=== PATIENT | male | born 1950 | race American Indian/Alaskan Native ===

== ENCOUNTER 2016-11-19 12:22 | Inpatient (IN) | payer MEDICARE ==
[2016-11-19 13:15] LABS: Basophils % (Auto) 0.8 % (0.0-1.8); Eosinophils % (Auto) 3.7 % (0.0-4.3); Hematocrit 26.1 % (35.5-45.6); Hemoglobin 8.7 gm/dl (11.8-15.2); Mean Corpuscular HGB Conc 33 % (32-34); Mean Corpuscular Hemoglobin 29 pg (28-32); Mean Corpuscular Volume 89 fl (84-94); Platelet Count 232 K/mm3 (140-440); Red Blood Count 2.95 M/mm3 (3.65-5.03); Red Cell Distribution Width 14.1 % (13.2-15.2); White Blood Count 8.5 K/mm3 (4.5-11.0)
[2016-11-19 13:37] LABS: Albumin 3.7 g/dL (3.9-5); Albumin/Globulin Ratio 1.1 %; BUN/Creatinine Ratio 10.4; Bilirubin,Total 0.2 mg/dL (0.1-1.2); Calcium 9.1 mg/dL (8.4-10.2); Chloride 101.6 mmol/L (98-107); Potassium 5.1 mmol/L (3.6-5.0)
[2016-11-19 13:59] LABS: Bacteria,Urine 1+ /HPF (Negative); Bilirubin,Urine NEG (Negative); Blood,Urine NEG (Negative); Ketones,Urine NEG (Negative); Leukocyte Esterase,Urine LG (Negative); Nitrite,Urine NEG (Negative); Protein,Urine <15 mg/dL mg/dL (Negative); Urobilinogen,Urine < 2.0 mg/dL (<2.0)
[2016-11-19 14:02] LABS: WBC,Urine > 182.0 /HPF (0.0-6.0)
--- NOTE | 2016-11-19 14:50 | Emergency Department Report ---
ED General Adult HPI - General Chief complaint: Weakness Stated complaint: ABNORMAL LABS Time Seen by Provider: 11/19/16 14:34 Source: patient Mode of arrival: Ambulatory Limitations: No Limitations - History of Present Illness Initial comments: The patient did complain of some generalized weakness. However, he was mainly sent here from Dr. Peterson's office due to a abnormal laboratory report. The patient states that he was found to have a creatinine of 6 on a blood test that was drawn a week and a half ago. He doesn't know why it took so long to get the laboratory report back. However, when he saw Dr. Peterson in the office today he was sent to the emergency department for evaluation. Patient was recently admitted to this facility for acute renal failure and obstructive uropathy. He had a Winn placed. He followed up with Dr. Callaway who removed the Winn approximately one week after discharge. He is not discharged on antibiotics. He states that while his kidneys were obstructed, he was urinating fine. He states "Dr. Soliz couldn't understand why that was the case". Patient denies dysuria, nausea vomiting flank pain or difficulty urinating now. He states he feels like he can't empty his bladder. He was placed on Flomax for prostatic hypertrophy. Not know what his PSA was. -: unknown Associated Symptoms: denies other symptoms - Related Data Previous Rx's Medication Instructions Recorded Last Taken Type Labetalol [Normodyne TAB] 400 mg PO BID #60 tablet 11/03/16 Unknown Rx Sodium Bicarbonate 650 mg PO TID #90 tablet 11/03/16 Unknown Rx Tamsulosin [Flomax] 0.4 mg PO QDAY #30 capsule 11/03/16 Unknown Rx amLODIPine [Norvasc] 10 mg PO QDAY #30 tablet 11/03/16 Unknown Rx Allergies Allergy/AdvReac Type Severity Reaction Status Date / Time aspirin AdvReac Bleeding Verified 10/31/16 20:34 ED Review of Systems ROS: Stated complaint: ABNORMAL LABS Other details as noted in HPI Constitutional: weakness. denies: chills, fever Eyes: denies: eye pain, eye discharge, vision change ENT: denies: ear pain, throat pain Respiratory: denies: cough, shortness of breath, wheezing Cardiovascular: denies: chest pain, palpitations Endocrine: no symptoms reported Gastrointestinal: denies: abdominal pain, nausea, diarrhea Genitourinary: denies: urgency, dysuria Musculoskeletal: denies: back pain, joint swelling, arthralgia Skin: denies: rash, lesions Neurological: denies: headache, weakness, paresthesias Psychiatric: denies: anxiety, depression Hematological/Lymphatic: denies: easy bleeding, easy bruising ED Past Medical Hx - Past Medical History Previous Medical History?: Yes Additional medical history: renal insufficiency - Surgical History Past Surgical History?: No - Social History Smoking Status: Never Smoker Substance Use Type: Alcohol, Prescribed - Medications Home Medications: Home Medications Medication Instructions Recorded Confirmed Last Taken Type Labetalol [Normodyne TAB] 400 mg PO BID #60 tablet 11/03/16 11/19/16 Unknown Rx Sodium Bicarbonate 650 mg PO TID #90 tablet 11/03/16 11/19/16 Unknown Rx Tamsulosin [Flomax] 0.4 mg PO QDAY #30 capsule 11/03/16 11/19/16 Unknown Rx amLODIPine [Norvasc] 10 mg PO QDAY #30 tablet 11/03/16 11/19/16 Unknown Rx ED Physical Exam - General Limitations: No Limitations General appearance: alert, in no apparent distress - Head Head exam: Present: atraumatic, normocephalic - Eye Eye exam: Present: normal appearance. Absent: scleral icterus - ENT ENT exam: Present: mucous membranes moist - Neck Neck exam: Present: normal inspection. Absent: tenderness, meningismus - Respiratory Respiratory exam: Present: normal lung sounds bilaterally. Absent: respiratory distress - Cardiovascular Cardiovascular Exam: Present: regular rate, normal rhythm. Absent: systolic murmur, diastolic murmur, rubs, gallop - GI/Abdominal GI/Abdominal exam: Present: soft, normal bowel sounds, other (bladder is not frankly enlarged. A bladder scan is pending.). Absent: distended, tenderness, guarding, rebound, rigid - Rectal Rectal exam: Present: deferred - Extremities Exam Extremities exam: Present: normal inspection, normal capillary refill. Absent: joint swelling, calf tenderness - Back Exam Back exam: Present: normal inspection. Absent: tenderness, CVA tenderness (R), CVA tenderness (L), muscle spasm, paraspinal tenderness - Neurological Exam Neurological exam: Present: alert, oriented X3, CN II-XII intact. Absent: motor sensory deficit - Psychiatric Psychiatric exam: Present: normal affect, normal mood - Skin Skin exam: Present: warm, dry, intact, normal color. Absent: rash ED Course Vital Signs 11/19/16 11/19/16 11/19/16 12:28 13:33 13:40 Temperature 98.4 F Pulse Rate 70 Respiratory 20 Rate Blood Pressure 98/63 110/57 O2 Sat by Pulse 100 100 100 Oximetry 11/19/16 11/19/16 11/19/16 13:50 14:00 14:10 Temperature Pulse Rate Respiratory Rate Blood Pressure 110/57 115/62 110/57 O2 Sat by Pulse 100 100 100 Oximetry - Reevaluation(s) Reevaluation #1: Episode be prudent to place the patient in the hospital and consideration of his elevated potassium and creatinine of 2.5 associated with a urinary tract infection. He is referred to Dr. Patel. He was given ceftriaxone and a urine culture was ordered. 11/19/16 15:54 ED Medical Decision Making - Lab Data Result diagrams: 11/19/16 12:53 11/19/16 12:53 Laboratory Results - last 24 hr 11/19/16 11/19/16 11/19/16 12:53 12:53 13:28 WBC 8.5 RBC 2.95 L Hgb 8.7 L Hct 26.1 L MCV 89 MCH 29 MCHC 33 RDW 14.1 Plt Count 232 Lymph % (Auto) 18.2 [place] % (Auto) 7.9 H Eos % (Auto) 3.7 Baso % (Auto) 0.8 Lymph # 1.5 [place] # 0.7 Eos # 0.3 Baso # 0.1 Seg Neutrophils % 69.4 Seg Neutrophils # 5.9 Sodium 139 Potassium 5.1 H Chloride 101.6 Carbon Dioxide 23 Anion Gap 20 BUN 26 H Creatinine 2.5 H Estimated GFR 31 BUN/Creatinine Ratio 10.40 Glucose 129 H Calcium 9.1 Total Bilirubin 0.20 AST 13 ALT 16 Alkaline Phosphatase 50 Total Protein 7.0 Albumin 3.7 L Albumin/Globulin Ratio 1.1 Urine Color Yellow Urine Turbidity Cloudy Urine pH 6.0 Ur Specific [place] 1.010 Urine Protein <15 mg/dl Urine Glucose (UA) Neg Urine Ketones Neg Urine Blood Neg Urine Nitrite Neg Urine Bilirubin Neg Urine Urobilinogen < 2.0 Ur Leukocyte Esterase Lg Urine WBC (Auto) > 182.0 H Urine RBC (Auto) 7.0 U Epithel Cells (Auto) < 1.0 Urine Bacteria (Auto) 1+ Urine Yeast (Budding) 2+ Critical care attestation.: If time is entered above; I have spent that time in minutes in the direct care of this critically ill patient, excluding procedure time. ED Disposition Clinical Impression: Hyperkalemia, UTI (urinary tract infection) Acute on chronic renal failure Qualifiers: Acute renal failure type: unspecified Chronic kidney disease stage: stage 3 ( moderate) Qualified Code(s): N17.9 - Acute kidney failure, unspecified; N18.3 - Chronic kidney disease, stage 3 (moderate) Disposition: DC-01 TO HOME OR SELFCARE Is pt being admited?: Yes Does the pt Need Aspirin: Yes Condition: Stable Referrals: PRIMARY CARE, [Primary Care Provider] - 3-5 Days Time of Disposition: 15:56
[2016-11-19] MEDS ORDERED: ROCEPHIN/NS 1 GM/50 ML 1 GM/50 ML BAG IV ONE (14:51)
[2016-11-19] MEDS ORDERED: NACL 0.9% 1000 ML 1,000 ML IV ONE (14:51)
--- NOTE | 2016-11-19 15:42 | Admit Criteria Form ---
Admission Criteria Documentation: URINARY COMPLICATIONS Clinical Indications for Inpatient Care (Place 'X' for any and all applicable criteria): Ongoing inpatient care may be indicated for urinary complications with ANY ONE of the following: [X]I. Urinary tract infection requiring inpatient care as indicated by ANY ONE of the following(8)(19)(20): [ ]a) Severe symptoms (eg, high fever, severe pain) [ ]b) Vomiting or dehydration requiring ongoing inpatient care [ X]c) IV antibiotic needs that cannot be managed at lower level of care [ ]d) Hemodynamic instability [ ]e) Obstruction of collecting system by stone or tumor [ ]II. Urinary retention requiring drainage or surgery (3)(4)(5)(17)(18) [ ]III. Renal failure (Use Renal Failure Criteria for further information.) [ ]IV. Oliguria(30) [ ]V. Post obstructive diuresis requiring close monitoring of urine output and intravenous compensation for excessive fluid losses(33) Extended stay beyond goal length of stay for primary condition may be needed until ALL of the following are present(3)(4)(5)(8): [ ]a) Renal function (creatinine) at baseline, or daily decreases in creatinine consistent with renal function return [ ]b) Voiding adequately or with urinary catheter or percutaneous suprapubic tube and management regimen in place that is performable at lower level of care. [ ]c) Urine output adequate [ ]d) Fever absent or resolving [ ]e) Infection absent or treatable at next level of care The original [employer] content created by [employer] has been revised. The portions of the content which have been revised are identified through the use of italic text or in bold, and [facility] has neither reviewed nor approved the modified material. All other unmodified content is copyright [employer] Please see references footnoted in the original [employer] edition 2016 Admission Criteria Met: Yes
--- NOTE | 2016-11-19 15:57 | History and Physical Report ---
History of Present Illness Chief complaint: I feel weak, I feel sick History of present illness: 66 YO Male with Severe Malnutrition, CKD, Obstructive Uropathy presents to ED for evaluation. Pt states that he has been feeling weak for the past 2 weeks and has been experiencing pain with urination with worsening symptoms over the past 2 days. Pt was seen by PCP and found to have elevated creatnine and was sent to ED for evaluation. Pt states that he feels weak, and tired, but denies fever, chills, CP, Palpitations, NVD, syncope, productive cough, or recent ill contacts. Past History Past Medical History: renal failure, other (malnutrition) Past Surgical History: No surgical history, Other (reviewed) Social history: single. denies: smoking, alcohol abuse, prescription drug abuse Family history: no significant family history (reviewed) Medications and Allergies Allergies Allergy/AdvReac Type Severity Reaction Status Date / Time aspirin AdvReac Bleeding Verified 10/31/16 20:34 Home Medications Medication Instructions Recorded Confirmed Last Taken Type Labetalol [Normodyne TAB] 400 mg PO BID #60 tablet 11/03/16 11/19/16 Unknown Rx Sodium Bicarbonate 650 mg PO TID #90 tablet 11/03/16 11/19/16 Unknown Rx Tamsulosin [Flomax] 0.4 mg PO QDAY #30 capsule 11/03/16 11/19/16 Unknown Rx amLODIPine [Norvasc] 10 mg PO QDAY #30 tablet 11/03/16 11/19/16 Unknown Rx Active Meds: Active Medications Sodium Chloride (Nacl 0.9% 1000 Ml) 1,000 mls @ 125 mls/hr IV ONCE ONE Stop: 11/19/16 22:50 Last Admin: 11/19/16 15:18 Dose: 125 mls/hr Review of Systems All systems: negative Genitourinary Male: dysuria Exam - Constitutional Vitals: Temp Pulse Resp BP Pulse Ox 98.4 F 70 20 110/57 100 11/19/16 12:28 11/19/16 12:28 11/19/16 12:28 11/19/16 14:10 11/19/16 14:10 General appearance: Present: mild distress, cachectic - EENT Eyes: Present: PERRL ENT: hearing intact, clear oral mucosa - Neck Neck: Present: supple, normal ROM - Respiratory Respiratory effort: normal Respiratory: bilateral: CTA - Cardiovascular Heart Sounds: Present: S1 & S2. Absent: rub, click - Extremities Extremities: pulses symmetrical, No edema Peripheral Pulses: within normal limits - Abdominal General gastrointestinal: Present: soft, non-tender, non-distended, normal bowel sounds Male genitourinary: Present: normal - Integumentary Integumentary: Present: clear, warm, dry - Musculoskeletal Musculoskeletal: gait normal, strength equal bilaterally - Psychiatric Psychiatric: appropriate mood/affect, intact judgment & insight - Neurologic Neurologic: CNII-XII intact, moves all extremities Results - Labs CBC & Chem 7: 11/19/16 12:53 11/19/16 12:53 Labs: Abnormal lab results 11/19/16 11/19/16 11/19/16 Range/Units 12:53 12:53 13:28 RBC 2.95 L (3.65-5.03) M/mm3 Hgb 8.7 L (11.8-15.2) gm/dl Hct 26.1 L (35.5-45.6) % [place] % (Auto) 7.9 H (0.0-7.3) % Potassium 5.1 H (3.6-5.0) mmol/L BUN 26 H (9-20) mg/dL Creatinine 2.5 H (0.8-1.5) mg/dL Glucose 129 H (75-100) mg/dL Albumin 3.7 L (3.9-5) g/dL Urine WBC (Auto) > 182.0 H (0.0-6.0) /HPF Assessment and Plan - Patient Problems (1) Acute on chronic renal failure Current Visit: Yes Status: Acute Qualifiers: Acute renal failure type: unspecified Chronic kidney disease stage: stage 3 (moderate) Qualified Code(s): N17.9 - Acute kidney failure, unspecified; N18.3 - Chronic kidney disease, stage 3 (moderate) Plan to address problem: Nephrology consulted in ED, supportive care, IVF, supportive care, woods catheter placement. (2) UTI (urinary tract infection) Current Visit: Yes Status: Acute Qualifiers: Urinary tract infection type: U Hematuria presence: H Indwelling urinary catheter type: I Encounter type: E Plan to address problem: IV abx, ivf, supportive care (3) Hyperkalemia Current Visit: Yes Status: Acute Plan to address problem: IVF, repeat potassium level, No EKG changes, (4) Severe malnutrition Current Visit: Yes Status: Acute Plan to address problem: Increased protein intake, supportive care. (5) DVT prophylaxis Current Visit: Yes Status: Acute
[2016-11-19] MEDS ORDERED: ZOFRAN IV PRN (15:58)
[2016-11-19] MEDS ORDERED: DUONEB *Not for PRN Use IH (15:58)
[2016-11-19] MEDS ORDERED: TYLENOL PO PRN (15:58)
[2016-11-19] MEDS ORDERED: DULCOLAX PR PRN (15:58)
[2016-11-19] MEDS ORDERED: MILK OF MAGNESIA PO PRN (15:58)
[2016-11-19] MEDS ORDERED: NACL 0.45% 1,000 ML IV SCH (17:00)
[2016-11-19] MEDS ORDERED: AMBIEN PO ONE (22:38)
--- NOTE | 2016-11-20 09:26 | History and Physical Report ---
History of Present Illness Date of examination: 11/20/16 Date of admission: 11/19/16 15:58 Past History Past Medical History: renal failure, other (malnutrition) Past Surgical History: No surgical history, Other (reviewed) Social history: single. denies: smoking, alcohol abuse, prescription drug abuse Family history: no significant family history (reviewed) Medications and Allergies Allergies Allergy/AdvReac Type Severity Reaction Status Date / Time aspirin AdvReac Bleeding Verified 10/31/16 20:34 Home Medications Medication Instructions Recorded Confirmed Last Taken Type Labetalol [Normodyne TAB] 400 mg PO BID #60 tablet 11/03/16 11/19/16 Unknown Rx Sodium Bicarbonate 650 mg PO TID #90 tablet 11/03/16 11/19/16 Unknown Rx Tamsulosin [Flomax] 0.4 mg PO QDAY #30 capsule 11/03/16 11/19/16 Unknown Rx amLODIPine [Norvasc] 10 mg PO QDAY #30 tablet 11/03/16 11/19/16 Unknown Rx Active Meds: Active Medications Acetaminophen (Tylenol) 650 mg PO Q4H PRN PRN Reason: Pain MILD(1-3)/Fever >100.5/EDWARDS Albuterol/Ipratropium (Duoneb 0.5 Mg-3 Mg/3 Ml Soln) 1 ampul IH Q6HRT PRN PRN Reason: Wheezing Bisacodyl (Dulcolax) 10 mg [place] QDAY PRN PRN Reason: Constipation unrelieved by MOM Ceftriaxone Sodium (Rocephin/Ns 1 Gm/50 Ml) 1 gm in 50 mls @ 100 mls/hr IV Q24HR LOGAN PRN Reason: Protocol Sodium Chloride (Nacl 0.45%) 1,000 mls @ 100 mls/hr IV DIRECT LOGAN Magnesium Hydroxide (Milk Of Magnesia) 30 ml PO Q4H PRN PRN Reason: Constipation Ondansetron HCl (Zofran) 4 mg IV Q8H PRN PRN Reason: N/V unrelieved by Reglan Exam - Constitutional Vitals: Temp Pulse Resp BP Pulse Ox 98.9 F 84 18 118/63 100 11/20/16 04:00 11/20/16 04:00 11/20/16 04:00 11/20/16 04:00 11/20/16 00:00 Results - Labs CBC & Chem 7: 11/20/16 10:34 11/20/16 10:34 Labs: Laboratory Last Values WBC 8.5 K/mm3 (4.5-11.0) 11/19/16 12:53 RBC 2.95 M/mm3 (3.65-5.03) L 11/19/16 12:53 Hgb 8.7 gm/dl (11.8-15.2) L 11/19/16 12:53 Hct 26.1 % (35.5-45.6) L 11/19/16 12:53 MCV 89 fl (84-94) 11/19/16 12:53 MCH 29 pg (28-32) 11/19/16 12:53 MCHC 33 % (32-34) 11/19/16 12:53 RDW 14.1 % (13.2-15.2) 11/19/16 12:53 Plt Count 232 K/mm3 (140-440) 11/19/16 12:53 Lymph % (Auto) 18.2 % (13.4-35.0) 11/19/16 12:53 [place] % (Auto) 7.9 % (0.0-7.3) H 11/19/16 12:53 Eos % (Auto) 3.7 % (0.0-4.3) 11/19/16 12:53 Baso % (Auto) 0.8 % (0.0-1.8) 11/19/16 12:53 Lymph # 1.5 K/mm3 (1.2-5.4) 11/19/16 12:53 [place] # 0.7 K/mm3 (0.0-0.8) 11/19/16 12:53 Eos # 0.3 K/mm3 (0.0-0.4) 11/19/16 12:53 Baso # 0.1 K/mm3 (0.0-0.1) 11/19/16 12:53 Seg Neutrophils % 69.4 % (40.0-70.0) 11/19/16 12:53 Seg Neutrophils # 5.9 K/mm3 (1.8-7.7) 11/19/16 12:53 Sodium 139 mmol/L (137-145) 11/19/16 12:53 Potassium 5.1 mmol/L (3.6-5.0) H 11/19/16 12:53 Chloride 101.6 mmol/L (98-107) 11/19/16 12:53 Carbon Dioxide 23 mmol/L (22-30) 11/19/16 12:53 Anion Gap 20 mmol/L 11/19/16 12:53 BUN 26 mg/dL (9-20) H 11/19/16 12:53 Creatinine 2.5 mg/dL (0.8-1.5) H 11/19/16 12:53 Estimated GFR 31 ml/min 11/19/16 12:53 BUN/Creatinine Ratio 10.40 % 11/19/16 12:53 Glucose 129 mg/dL (75-100) H 11/19/16 12:53 Calcium 9.1 mg/dL (8.4-10.2) 11/19/16 12:53 Total Bilirubin 0.20 mg/dL (0.1-1.2) 11/19/16 12:53 AST 13 units/L (5-40) 11/19/16 12:53 ALT 16 units/L (7-56) 11/19/16 12:53 Alkaline Phosphatase 50 units/L (35-129) 11/19/16 12:53 Total Protein 7.0 g/dL (6.3-8.2) 11/19/16 12:53 Albumin 3.7 g/dL (3.9-5) L 11/19/16 12:53 Albumin/Globulin Ratio 1.1 % 11/19/16 12:53 Urine Color Yellow (Yellow) 11/19/16 13:28 Urine Turbidity Cloudy (Clear) 11/19/16 13:28 Urine pH 6.0 (5.0-7.0) 11/19/16 13:28 Ur Specific [place] 1.010 (1.003-1.030) 11/19/16 13:28 Urine Protein <15 mg/dl mg/dL (Negative) 11/19/16 13:28 Urine Glucose (UA) Neg mg/dL (Negative) 11/19/16 13:28 Urine Ketones Neg mg/dL (Negative) 11/19/16 13:28 Urine Blood Neg (Negative) 11/19/16 13:28 Urine Nitrite Neg (Negative) 11/19/16 13:28 Urine Bilirubin Neg (Negative) 11/19/16 13:28 Urine Urobilinogen < 2.0 mg/dL (<2.0) 11/19/16 13:28 Ur Leukocyte Esterase Lg (Negative) 11/19/16 13:28 Urine WBC (Auto) > 182.0 /HPF (0.0-6.0) H 11/19/16 13:28 Urine RBC (Auto) 7.0 /HPF (0.0-6.0) 11/19/16 13:28 U Epithel Cells (Auto) < 1.0 /HPF (0-13.0) 11/19/16 13:28 Urine Bacteria (Auto) 1+ /HPF (Negative) 11/19/16 13:28 Urine Yeast (Budding) 2+ /HPF 11/19/16 13:28
[2016-11-20 10:56] LABS: Basophils % (Auto) 0.9 % (0.0-1.8); Eosinophils % (Auto) 2.4 % (0.0-4.3); Hematocrit 25.7 % (35.5-45.6); Hemoglobin 8.6 gm/dl (11.8-15.2); Mean Corpuscular HGB Conc 33 % (32-34); Mean Corpuscular Hemoglobin 30 pg (28-32); Mean Corpuscular Volume 89 fl (84-94); Platelet Count 222 K/mm3 (140-440); Red Blood Count 2.89 M/mm3 (3.65-5.03); White Blood Count 9.5 K/mm3 (4.5-11.0)
[2016-11-20] MEDS: ROCEPHIN/NS 1 GM/50 ML 1 GM/50 ML BAG IV SCH (10:59)
[2016-11-20 11:15] LABS: BUN/Creatinine Ratio 8.88; Calcium 9.1 mg/dL (8.4-10.2); Chloride 101.5 mmol/L (98-107); Potassium 4.6 mmol/L (3.6-5.0)
[2016-11-20] MEDS ORDERED: PROVENTIL IH PRN (19:30)
[2016-11-20] MEDS: NACL 0.45% 1000 ML 1,000 ML IV SCH (21:41)
--- NOTE | 2016-11-21 00:56 | Progress Note ---
Assessment and Plan (1) Acute on chronic renal failure Current Visit: Yes Status: Acute Qualifiers: Acute renal failure type: unspecified Chronic kidney disease stage: stage 3 (moderate) Qualified Code(s): N17.9 - Acute kidney failure, unspecified; N18.3 - Chronic kidney disease, stage 3 (moderate) Plan to address problem: Nephrology consulted in ED, supportive care, IVF, supportive care, woods catheter placement. Dr Quiles consulted.WAS seen by their group last visit. Creatinine of 2.5 seems to be baseline. s (2) UTI (urinary tract infection) Current Visit: Yes Status: Acute Qualifiers: Urinary tract infection type: U Hematuria presence: H Indwelling urinary catheter type: I Encounter type: E Plan to address problem: IV abx, ivf, supportive care (3) Hyperkalemia Current Visit: Yes Status: Acute Plan to address problem: Now Normal level (4) Malnutrition Current Visit: Yes Status: Acute Plan to address problem: Increased protein intake, supportive care. (5) DVT prophylaxis Current Visit: Yes Status: Acute Subjective Date of service: 11/20/16 Principal diagnosis: UTI and ARF Interval history: Patient seen on 11/20/16. Mistakenly H/p was put in draft mode which was cancelled. Treat this as late entry. No Complaints. No fever Admitted in October for Acute renal failure sec Obstructive uropathy.Had creatine of 11 last hospitalization.Admitted for UTI and ARF Objective - Constitutional Vitals: Vital Signs - 12hr 11/20/16 11/20/16 15:45 23:49 Temperature 99.6 F 98.8 F Pulse Rate [ 80 Left] Pulse Rate [ 79 Right Radial] Respiratory 16 18 Rate Blood Pressure 118/70 [Left Arm] Blood Pressure 145/76 [Right Arm] O2 Sat by Pulse 100 100 Oximetry General appearance: Present: no acute distress, well-nourished - EENT Eyes: PERRL, EOM intact ENT: hearing intact, clear oral mucosa Ears: bilateral: normal - Neck Neck: supple, normal ROM - Respiratory Respiratory effort: normal Respiratory: bilateral: CTA - Breasts Breasts: normal - Cardiovascular Rhythm: regular Heart Sounds: Present: S1 & S2. Absent: gallop, rub Extremities: pulses intact, No edema, normal color, Full ROM - Gastrointestinal General gastrointestinal: Present: soft, non-tender, non-distended, normal bowel sounds - Genitourinary Male genitourinary: normal - Integumentary Integumentary: clear, warm, dry - Musculoskeletal Musculoskeletal: 1, strength equal bilaterally - Neurologic Neurologic: moves all extremities - Psychiatric Psychiatric: memory intact, appropriate mood/affect, intact judgment & insight - Labs CBC & Chem 7: 11/20/16 10:34 11/20/16 10:34 Labs: Abnormal lab results 11/20/16 11/20/16 Range/Units 10:34 10:34 RBC 2.89 L (3.65-5.03) M/mm3 Hgb 8.6 L (11.8-15.2) gm/dl Hct 25.7 L (35.5-45.6) % Seg Neutrophils % 74.0 H (40.0-70.0) % BUN 24 H (9-20) mg/dL Creatinine 2.7 H (0.8-1.5) mg/dL Glucose 128 H (75-100) mg/dL
[2016-11-21 05:23] LABS: BUN/Creatinine Ratio 6.96; Calcium 8.7 mg/dL (8.4-10.2); Chloride 101.5 mmol/L (98-107); Potassium 4.8 mmol/L (3.6-5.0)
[2016-11-21] MEDS: NACL 0.45% 1000 ML 1,000 ML IV SCH ×2 (06:12→16:54)
--- NOTE | 2016-11-21 09:29 | Progress Note ---
Assessment and Plan Assessment and plan: --Acute on chronic kidney disease stage III Worsening renal function, continue IV fluids, closely monitor renal function, avoid nephrotoxic medications Probably secondary to BPH ,? Obstructive uropathy, check renal ultrasound , Follow Nephrology evaluation --Urinary tract infection Continue empiric antibiotics, IV fluids, follow cultures --Anemia probably secondary to acute on chronic kidney disease Closely monitor H&H and transfuse as needed --Hypertension; moderate control Continue current antihypertensives and when necessary medications --History of benign prostatic hypertrophy Continue Flomax --DVT prophylaxis with heparin renal dose Patient's condition treatment plan discussed in detail with the patient, his nurse as well as case management History Interval history: Patient seen and evaluated medical records reviewed No New Events reported by the nursing staff Patient feels better, denies chest pain or shortness of breath Alert awake oriented 3 not in acute distress Hospitalist Physical - Constitutional Vitals: Temp Pulse Resp BP Pulse Ox 99.1 F 84 18 119/85 99 11/21/16 07:45 11/21/16 07:45 11/21/16 07:45 11/21/16 07:45 11/21/16 07:45 General appearance: Present: no acute distress, well-nourished - EENT Eyes: Present: PERRL, EOM intact - Neck Neck: Present: supple, normal ROM - Respiratory Respiratory effort: normal Respiratory: bilateral: diminished, negative: rales, rhonchi, wheezing - Cardiovascular Rhythm: regular Heart Sounds: Present: S1 & S2 - Extremities Extremities: no ischemia, pulses intact, pulses symmetrical Peripheral Pulses: within normal limits - Abdominal General gastrointestinal: soft, non-tender, non-distended, normal bowel sounds - Integumentary Integumentary: Present: clear, warm - Psychiatric Psychiatric: appropriate mood/affect, cooperative - Neurologic Neurologic: CNII-XII intact, moves all extremities Results - Labs CBC & Chem 7: 11/20/16 10:34 11/22/16 04:22 Labs: Laboratory Last Values WBC 9.5 K/mm3 (4.5-11.0) 11/20/16 10:34 RBC 2.89 M/mm3 (3.65-5.03) L 11/20/16 10:34 Hgb 8.6 gm/dl (11.8-15.2) L 11/20/16 10:34 Hct 25.7 % (35.5-45.6) L 11/20/16 10:34 MCV 89 fl (84-94) 11/20/16 10:34 MCH 30 pg (28-32) 11/20/16 10:34 MCHC 33 % (32-34) 11/20/16 10:34 RDW 14.0 % (13.2-15.2) 11/20/16 10:34 Plt Count 222 K/mm3 (140-440) 11/20/16 10:34 Lymph % (Auto) 15.8 % (13.4-35.0) 11/20/16 10:34 [place] % (Auto) 6.9 % (0.0-7.3) 11/20/16 10:34 Eos % (Auto) 2.4 % (0.0-4.3) 11/20/16 10:34 Baso % (Auto) 0.9 % (0.0-1.8) 11/20/16 10:34 Lymph # 1.5 K/mm3 (1.2-5.4) 11/20/16 10:34 [place] # 0.7 K/mm3 (0.0-0.8) 11/20/16 10:34 Eos # 0.2 K/mm3 (0.0-0.4) 11/20/16 10:34 Baso # 0.1 K/mm3 (0.0-0.1) 11/20/16 10:34 Seg Neutrophils % 74.0 % (40.0-70.0) H 11/20/16 10:34 Seg Neutrophils # 7.0 K/mm3 (1.8-7.7) 11/20/16 10:34 Sodium 135 mmol/L (137-145) L 11/21/16 04:48 Potassium 4.8 mmol/L (3.6-5.0) 11/21/16 04:48 Chloride 101.5 mmol/L (98-107) 11/21/16 04:48 Carbon Dioxide 21 mmol/L (22-30) L 11/21/16 04:48 Anion Gap 17 mmol/L 11/21/16 04:48 BUN 23 mg/dL (9-20) H 11/21/16 04:48 Creatinine 3.3 mg/dL (0.8-1.5) H 11/21/16 04:48 Estimated GFR 23 ml/min 11/21/16 04:48 BUN/Creatinine Ratio 6.96 % 11/21/16 04:48 Glucose 81 mg/dL (75-100) 11/21/16 04:48 Calcium 8.7 mg/dL (8.4-10.2) 11/21/16 04:48 Total Bilirubin 0.20 mg/dL (0.1-1.2) 11/19/16 12:53 AST 13 units/L (5-40) 11/19/16 12:53 ALT 16 units/L (7-56) 11/19/16 12:53 Alkaline Phosphatase 50 units/L (35-129) 11/19/16 12:53 Total Protein 7.0 g/dL (6.3-8.2) 11/19/16 12:53 Albumin 3.7 g/dL (3.9-5) L 11/19/16 12:53 Albumin/Globulin Ratio 1.1 % 11/19/16 12:53 Urine Color Yellow (Yellow) 11/19/16 13:28 Urine Turbidity Cloudy (Clear) 11/19/16 13:28 Urine pH 6.0 (5.0-7.0) 11/19/16 13:28 Ur Specific [place] 1.010 (1.003-1.030) 11/19/16 13:28 Urine Protein <15 mg/dl mg/dL (Negative) 11/19/16 13:28 Urine Glucose (UA) Neg mg/dL (Negative) 11/19/16 13:28 Urine Ketones Neg mg/dL (Negative) 11/19/16 13:28 Urine Blood Neg (Negative) 11/19/16 13:28 Urine Nitrite Neg (Negative) 11/19/16 13:28 Urine Bilirubin Neg (Negative) 11/19/16 13:28 Urine Urobilinogen < 2.0 mg/dL (<2.0) 11/19/16 13:28 Ur Leukocyte Esterase Lg (Negative) 11/19/16 13:28 Urine WBC (Auto) > 182.0 /HPF (0.0-6.0) H 11/19/16 13:28 Urine RBC (Auto) 7.0 /HPF (0.0-6.0) 11/19/16 13:28 U Epithel Cells (Auto) < 1.0 /HPF (0-13.0) 11/19/16 13:28 Urine Bacteria (Auto) 1+ /HPF (Negative) 11/19/16 13:28 Urine Yeast (Budding) 2+ /HPF 11/19/16 13:28
[2016-11-21] MEDS: ROCEPHIN/NS 1 GM/50 ML 1 GM/50 ML BAG IV SCH (10:15)
[2016-11-21] MEDS: FLOMAX PO SCH (16:52)
[2016-11-21] MEDS: NORVASC PO SCH (16:52)
[2016-11-21] MEDS ORDERED: NORMODYNE PO SCH (22:00)
[2016-11-21] MEDS: HEPARIN SUB-Q SCH (23:07)
[2016-11-21] MEDS: SODIUM BICARBONATE PO SCH (23:07)
[2016-11-22] MEDS: NACL 0.45% 1000 ML 1,000 ML IV SCH ×3 (02:58→22:58)
[2016-11-22 05:34] LABS: BUN/Creatinine Ratio 5.86; Calcium 8.5 mg/dL (8.4-10.2); Chloride 99.6 mmol/L (98-107); Potassium 4.5 mmol/L (3.6-5.0)
[2016-11-22] MEDS: FLOMAX PO SCH (09:39)
[2016-11-22] MEDS: SODIUM BICARBONATE PO SCH ×3 (09:39→23:05)
[2016-11-22] MEDS: NORVASC PO SCH (09:39)
[2016-11-22] MEDS: ROCEPHIN/NS 1 GM/50 ML 1 GM/50 ML BAG IV SCH (09:39)
[2016-11-22] MEDS: HEPARIN SUB-Q SCH ×2 (09:40→23:00)
--- NOTE | 2016-11-22 09:47 | Progress Note ---
Assessment and Plan Assessment and plan: --Acute on chronic kidney disease stage III Worsening renal function, continue IV fluids, closely monitor renal function, avoid nephrotoxic medications Probably secondary to BPH ,? Obstructive uropathy, check renal ultrasound , consult urology if needed --Urinary tract infection Continue empiric antibiotics, IV fluids, follow cultures --Anemia probably secondary to acute on chronic kidney disease Closely monitor H&H and transfuse as needed --Hypertension; moderate control Continue current antihypertensives and when necessary medications --History of benign prostatic hypertrophy Continue Flomax --DVT prophylaxis with heparin renal dose Patient's condition treatment plan discussed in detail with the patient, his nurse as well as case management History Interval history: Patient seen and evaluated this morning medical records reviewed Patient has worsening renal function, hospital obstructive uropathy, renal ultrasound pending report Alert awake oriented 3 not in acute distress Hospitalist Physical - Constitutional Vitals: Temp Pulse Resp BP Pulse Ox 99 F 80 16 122/72 97 11/22/16 08:00 11/22/16 08:00 11/22/16 08:00 11/22/16 08:00 11/22/16 08:00 General appearance: Present: no acute distress, well-nourished - EENT Eyes: Present: PERRL, EOM intact - Neck Neck: Present: supple, normal ROM - Respiratory Respiratory effort: normal Respiratory: negative: rales, rhonchi, wheezing - Cardiovascular Rhythm: regular Heart Sounds: Present: S1 & S2 - Extremities Extremities: no ischemia, pulses intact Extremity abnormal: edema - Abdominal General gastrointestinal: soft, non-tender, non-distended, normal bowel sounds - Integumentary Integumentary: Present: clear, warm - Psychiatric Psychiatric: appropriate mood/affect, cooperative - Neurologic Neurologic: CNII-XII intact, moves all extremities Results - Labs CBC & Chem 7: 11/20/16 10:34 11/22/16 04:22 Labs: Laboratory Last Values WBC 9.5 K/mm3 (4.5-11.0) 11/20/16 10:34 RBC 2.89 M/mm3 (3.65-5.03) L 11/20/16 10:34 Hgb 8.6 gm/dl (11.8-15.2) L 11/20/16 10:34 Hct 25.7 % (35.5-45.6) L 11/20/16 10:34 MCV 89 fl (84-94) 11/20/16 10:34 MCH 30 pg (28-32) 11/20/16 10:34 MCHC 33 % (32-34) 11/20/16 10:34 RDW 14.0 % (13.2-15.2) 11/20/16 10:34 Plt Count 222 K/mm3 (140-440) 11/20/16 10:34 Lymph % (Auto) 15.8 % (13.4-35.0) 11/20/16 10:34 [place] % (Auto) 6.9 % (0.0-7.3) 11/20/16 10:34 Eos % (Auto) 2.4 % (0.0-4.3) 11/20/16 10:34 Baso % (Auto) 0.9 % (0.0-1.8) 11/20/16 10:34 Lymph # 1.5 K/mm3 (1.2-5.4) 11/20/16 10:34 [place] # 0.7 K/mm3 (0.0-0.8) 11/20/16 10:34 Eos # 0.2 K/mm3 (0.0-0.4) 11/20/16 10:34 Baso # 0.1 K/mm3 (0.0-0.1) 11/20/16 10:34 Seg Neutrophils % 74.0 % (40.0-70.0) H 11/20/16 10:34 Seg Neutrophils # 7.0 K/mm3 (1.8-7.7) 11/20/16 10:34 Sodium 132 mmol/L (137-145) L 11/22/16 04:22 Potassium 4.5 mmol/L (3.6-5.0) 11/22/16 04:22 Chloride 99.6 mmol/L (98-107) 11/22/16 04:22 Carbon Dioxide 19 mmol/L (22-30) L 11/22/16 04:22 Anion Gap 18 mmol/L 11/22/16 04:22 BUN 27 mg/dL (9-20) H 11/22/16 04:22 Creatinine 4.6 mg/dL (0.8-1.5) H 11/22/16 04:22 Estimated GFR 15 ml/min 11/22/16 04:22 BUN/Creatinine Ratio 5.86 % 11/22/16 04:22 Glucose 94 mg/dL (75-100) 11/22/16 04:22 Calcium 8.5 mg/dL (8.4-10.2) 11/22/16 04:22 Total Bilirubin 0.20 mg/dL (0.1-1.2) 11/19/16 12:53 AST 13 units/L (5-40) 11/19/16 12:53 ALT 16 units/L (7-56) 11/19/16 12:53 Alkaline Phosphatase 50 units/L (35-129) 11/19/16 12:53 Total Protein 7.0 g/dL (6.3-8.2) 11/19/16 12:53 Albumin 3.7 g/dL (3.9-5) L 11/19/16 12:53 Albumin/Globulin Ratio 1.1 % 11/19/16 12:53 Urine Color Yellow (Yellow) 11/19/16 13:28 Urine Turbidity Cloudy (Clear) 11/19/16 13:28 Urine pH 6.0 (5.0-7.0) 11/19/16 13:28 Ur Specific [place] 1.010 (1.003-1.030) 11/19/16 13:28 Urine Protein <15 mg/dl mg/dL (Negative) 11/19/16 13:28 Urine Glucose (UA) Neg mg/dL (Negative) 11/19/16 13:28 Urine Ketones Neg mg/dL (Negative) 11/19/16 13:28 Urine Blood Neg (Negative) 11/19/16 13:28 Urine Nitrite Neg (Negative) 11/19/16 13:28 Urine Bilirubin Neg (Negative) 11/19/16 13:28 Urine Urobilinogen < 2.0 mg/dL (<2.0) 11/19/16 13:28 Ur Leukocyte Esterase Lg (Negative) 11/19/16 13:28 Urine WBC (Auto) > 182.0 /HPF (0.0-6.0) H 11/19/16 13:28 Urine RBC (Auto) 7.0 /HPF (0.0-6.0) 11/19/16 13:28 U Epithel Cells (Auto) < 1.0 /HPF (0-13.0) 11/19/16 13:28 Urine Bacteria (Auto) 1+ /HPF (Negative) 11/19/16 13:28 Urine Yeast (Budding) 2+ /HPF 11/19/16 13:28
[2016-11-22] MEDS ORDERED: NORVASC PO SCH (10:00)
--- NOTE | 2016-11-22 12:19 | Ultrasound Report ---
RENAL ULTRASOUND: 11/21/16 14:53:00 CLINICAL: Renal failure. FINDINGS: High resolution ultrasound demonstrated severe bilateral hydronephrosis and hydroureter. No renal or ureteral calculi identified. Moderate diffuse increased echogenicity of the kidneys. The right kidney measures 13.5 x 5.1 x 5.3-cm. The renal parenchyma measures 1.5-cm in thickness. The left kidney measures 11.4 x 6.1 x 6.6-cm. The renal parenchyma measures 2.0-cm in thickness. The urinary bladder distended with a thick irregular wall. Numerous echogenic reflectors are identified within the urine. An enlarged irregular prostate. IMPRESSION: Bilateral hydronephrosis with a distended urinary bladder and obstruction at the level of the bladder outlet. Particulate material in the urinary bladder. Increased echogenicity of the kidneys suggests medical renal disease.
--- NOTE | 2016-11-22 14:30 | Consultation ---
History of Present Illness - Reason for Consult Consult date: 11/22/16 acute renal failure Requesting physician: TANIA DAVE - History of Present Illness 66-year-old male with a history of hypertension and benign prostatic hyperplasia who was just admitted at this hospital last month with abdominal pain and increased BUN and creatinine at 161/31 mg/dL. Potassium was high at 5.6 mmol per liter, bicarbonate was low at a 11 millimoles per liter and sodium was also low at 127 mmol per liter. Ultrasound showed bilateral hydronephrosis and hydroureters. A Winn catheter was placed and kidney function improved. Patient was seen by Dr. Charles during that hospitalization. Was started on Flomax and Winn catheter was removed and patient was discharged. Went to see Dr. Charles as an outpatient and the dose of Flomax was increased. Presents now as labs drawn at primary care physician office showed creatinine had increased to 6 mg/dL. Patient was sent to the hospital and creatinine was in the mid twos. However the last couple of days creatinine has been increasing from 2.7- 3.3 and now 4.6 mg per deciliter. Sodium was also down to 132 mmol per liter and bicarbonate low at 19 mmol per liter. Patient is on sodium bicarbonate by mouth. Kidney ultrasound done yesterday showed bilateral hydronephrosis and hydroureter with distended urinary bladder suggestive of bladder outlet obstruction. There was also particulate material in the urinary bladder. Kidneys also showed increased echogenicity. I'm consulted to assist with managing the renal failure. Patient admits that he's been having urinary hesitancy, post stream with starting and stopping at home. He denies any nausea or vomiting. Appetite has been good. He also denies any shortness of breath. 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 He is originally from [place]) . denies: smoking, alcohol abuse, prescription drug abuse Family history: cancer (Sister has breast cancer), hypertension, stroke (Father of a stroke), other (Mother of tuberculosis at a young age. He has 25 siblings) Medications and Allergies Allergies Allergy/AdvReac Type Severity Reaction Status Date / Time aspirin AdvReac Bleeding Verified 10/31/16 20:34 Home Medications Medication Instructions Recorded Confirmed Last Taken Type Labetalol [Normodyne TAB] 400 mg PO BID #60 tablet 11/03/16 11/19/16 Unknown Rx Sodium Bicarbonate 650 mg PO TID #90 tablet 11/03/16 11/19/16 Unknown Rx Tamsulosin [Flomax] 0.4 mg PO QDAY #30 capsule 11/03/16 11/19/16 Unknown Rx amLODIPine [Norvasc] 10 mg PO QDAY #30 tablet 11/03/16 11/19/16 Unknown Rx Active Meds: Active Medications Acetaminophen (Tylenol) 650 mg PO Q4H PRN PRN Reason: Pain MILD(1-3)/Fever >100.5/EDWARDS Albuterol (Proventil) 2.5 mg IH Q4HRT PRN PRN Reason: Shortness Of Breath Amlodipine Besylate (Norvasc) 10 mg PO DAILY [facility] Last Admin: 11/22/16 09:39 Dose: 10 mg Bisacodyl (Dulcolax) 10 mg SC QDAY PRN PRN Reason: Constipation unrelieved by MOM Heparin Sodium (Porcine) (Heparin) 5,000 unit SUB-Q Q12HR [facility] Last Admin: 11/22/16 09:40 Dose: 5,000 unit Ceftriaxone Sodium (Rocephin/Ns 1 Gm/50 Ml) 1 gm in 50 mls @ 100 mls/hr IV Q24HR [facility] PRN Reason: Protocol Last Admin: 11/22/16 09:39 Dose: 100 mls/hr Sodium Chloride (Nacl 0.45% 1000 Ml) 1,000 mls @ 100 mls/hr IV DIRECT [facility] Last Admin: 11/22/16 13:37 Dose: 100 mls/hr Magnesium Hydroxide (Milk Of Magnesia) 30 ml PO Q4H PRN PRN Reason: Constipation Ondansetron HCl (Zofran) 4 mg IV Q8H PRN PRN Reason: N/V unrelieved by Reglan Sodium Bicarbonate (Sodium Bicarbonate) 650 mg PO TID [facility] Last Admin: 11/22/16 13:37 Dose: 650 mg Tamsulosin HCl (Flomax) 0.4 mg PO QDAY [facility] Last Admin: 11/22/16 09:39 Dose: 0.4 mg Review of Systems All systems: negative (Constitutional: no fever or chills. No anorexia or weight loss. HEENT: No sore throat or sinus drainage no hearing or vision impairment . Cardiovascular: No chest pain, shortness of breath, palpitations, lower extremity swelling or dizziness. Respiratory: No cough, sputum, shortness of breath, hemoptysis or wheezing. Gastrointestinal: No nausea, vomiting, diarrhea, abdominal pain, hematemesis or melena. Genitourinary: See history of present illness hematologic: No abnormal bleeding or bruising. Integumentary: no pruritus or rash. Neurological: No headache no focal weakness or numbness, no syncope or seizures. Musculoskeletal: No joint pains no stiffness. Psychiatry: no anxiety or depression) Exam - Vital Signs Vital signs: Vital Signs Temp Pulse Resp BP Pulse Ox 98.4 F 70 20 98/63 100 11/19/16 12:28 11/19/16 12:28 11/19/16 12:28 11/19/16 12:28 11/19/16 12:28 - Physical Exam Narrative exam: Elderly male lying in bed in no acute distress, asthenic build HEENT normocephalic atraumatic, pupils equal reactive to light, pink, clear oropharynx Neck supple, no thyromegaly no jugular venous distention CVS S1-S2 regular rate rhythm without murmur, rub or gallop Chest [clear to auscultation] Abdomen [soft nondistended nontender no organomegaly no bruit bowel sounds present] Extremities [no edema no cyanosis or clubbing] Genitourinary [deferred] Neuro [awake, alert oriented x3 no gross deficit] Results - Lab Results 11/20/16 10:34 11/22/16 04:22 Most recent lab results Calcium 8.5 mg/dL (8.4-10.2) 11/22/16 04:22 Assessment and Plan - Patient Problems (1) Acute on chronic renal failure Current Visit: Yes Status: Acute Qualifiers: Acute renal failure type: unspecified Chronic kidney disease stage: stage 3 (moderate) Qualified Code(s): N17.9 - Acute kidney failure, unspecified; N18.3 - Chronic kidney disease, stage 3 (moderate) Plan to address problem: Winn catheter being inserted. Urology consultation. Follow-up electrolytes and renal function. Monitor for post obstructive diuresis and volume depletion with electrolyte abnormalities. (2) Obstructive uropathy Current Visit: No Status: Acute Plan to address problem: Consults Dr. Charles his urologist. Insert Winn catheter. (3) Hyperkalemia Current Visit: Yes Status: Acute Plan to address problem: Potassium was improved with treatment (4) Hyponatremia Current Visit: Yes Status: Acute Plan to address problem: Follow up sodium following relief of obstruction. (5) Acidosis, metabolic Current Visit: No Status: Acute Plan to address problem: Increase sodium bicarbonate. Hopefully improves following the relief of Obstruction (6) BPH (benign prostatic hyperplasia) Current Visit: No Status: Acute Qualifiers: Lower urinary tract symptom presence: L Lower urinary tract symptom detail : L Plan to address problem: Definitive treatment for benign prostatic hyperplasia per Urologist (7) Anemia in chronic kidney disease Current Visit: Yes Status: Acute Qualifiers: Chronic kidney disease stage: C Plan to address problem: Check iron stores. Start erythropoietin if iron stores adequate
[2016-11-22] MEDS ORDERED: NACL 0.9% IR ONE ×4 (16:06→17:00)
--- NOTE | 2016-11-22 17:44 | Consultation ---
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 denies: smoking, alcohol abuse, prescription drug abuse Family history: cancer (Sister has breast cancer), hypertension, stroke (Father of a stroke), other (Mother of tuberculosis at a young age. He has 25 siblings) Medications and Allergies Allergies Allergy/AdvReac Type Severity Reaction Status Date / Time aspirin AdvReac Bleeding Verified 10/31/16 20:34 Home Medications Medication Instructions Recorded Confirmed Last Taken Type Labetalol [Normodyne TAB] 400 mg PO BID #60 tablet 11/03/16 11/19/16 Unknown Rx Sodium Bicarbonate 650 mg PO TID #90 tablet 11/03/16 11/19/16 Unknown Rx Tamsulosin [Flomax] 0.4 mg PO QDAY #30 capsule 11/03/16 11/19/16 Unknown Rx amLODIPine [Norvasc] 10 mg PO QDAY #30 tablet 11/03/16 11/19/16 Unknown Rx Active Meds: Active Medications Acetaminophen (Tylenol) 650 mg PO Q4H PRN PRN Reason: Pain MILD(1-3)/Fever >100.5/[place] Albuterol (Proventil) 2.5 mg IH Q4HRT PRN PRN Reason: Shortness Of Breath Amlodipine Besylate (Norvasc) 10 mg PO DAILY [facility] Last Admin: 11/22/16 09:39 Dose: 10 mg Bisacodyl (Dulcolax) 10 mg ID QDAY PRN PRN Reason: Constipation unrelieved by MOM Heparin Sodium (Porcine) (Heparin) 5,000 unit SUB-Q Q12HR [facility] Last Admin: 11/22/16 09:40 Dose: 5,000 unit Ceftriaxone Sodium (Rocephin/Ns 1 Gm/50 Ml) 1 gm in 50 mls @ 100 mls/hr IV Q24HR [facility] PRN Reason: Protocol Last Admin: 11/22/16 09:39 Dose: 100 mls/hr Sodium Chloride (Nacl 0.45% 1000 Ml) 1,000 mls @ 100 mls/hr IV DIRECT [facility] Last Admin: 11/22/16 13:37 Dose: 100 mls/hr Magnesium Hydroxide (Milk Of Magnesia) 30 ml PO Q4H PRN PRN Reason: Constipation Ondansetron HCl (Zofran) 4 mg IV Q8H PRN PRN Reason: N/V unrelieved by Reglan Sodium Bicarbonate (Sodium Bicarbonate) 650 mg PO TID [facility] Last Admin: 11/22/16 13:37 Dose: 650 mg Tamsulosin HCl (Flomax) 0.4 mg PO QDAY [facility] Last Admin: 11/22/16 09:39 Dose: 0.4 mg Exam - Constitutional Vitals: Temp Pulse Resp BP Pulse Ox 99.5 F 82 16 122/76 97 11/22/16 16:00 11/22/16 16:00 11/22/16 16:00 11/22/16 16:00 11/22/16 16:00 Results - Labs CBC & Chem 7: 11/20/16 10:34 11/22/16 04:22 Labs: Abnormal lab results 11/22/16 Range/Units 04:22 Sodium 132 L (137-145) mmol/L Carbon Dioxide 19 L (22-30) mmol/L BUN 27 H (9-20) mg/dL Creatinine 4.6 H (0.8-1.5) mg/dL Assessment and Plan URINARY RETENTION JIMENEZ HYDRO YANETH/CKI - woods placed by vt 16fr - cx sent - pt instructed to f/u outpt w/ Dr. Charles for Cysto and cancer check - disc his responsib to f/u
[2016-11-23 05:22] LABS: BUN/Creatinine Ratio 7.18; Calcium 8.9 mg/dL (8.4-10.2); Magnesium 1.7 mg/dL (1.7-2.3); Phosphorous 3.4 mg/dL (2.5-4.5); Potassium 4.3 mmol/L (3.6-5.0)
[2016-11-23] MEDS: NACL 0.45% 1000 ML 1,000 ML IV SCH ×2 (09:04→18:12)
[2016-11-23] MEDS: ROCEPHIN/NS 1 GM/50 ML 1 GM/50 ML BAG IV SCH (09:05)
[2016-11-23] MEDS: NORVASC PO SCH (09:06)
[2016-11-23] MEDS: HEPARIN SUB-Q SCH ×2 (09:06→21:05)
[2016-11-23] MEDS: SODIUM BICARBONATE PO SCH ×3 (09:06→21:04)
[2016-11-23] MEDS: FLOMAX PO SCH (09:06)
--- NOTE | 2016-11-23 10:33 | Progress Note ---
Assessment and Plan Assessment and plan: --Obstructive uropathy /lateral hydronephrosis /benign prostate hypertrophy / continuous Winn catheterization , urology evaluation and recommendations noted and appreciated , Creatinine levels trending down --Acute on chronic kidney disease stage III Worsening renal function, continue to obstructive uropathy continue IV fluids, closely monitor renal function, avoid nephrotoxic medications Nephrology following --Urinary tract infection Continue empiric antibiotics, IV fluids, follow cultures --Anemia probably secondary to acute on chronic kidney disease Closely monitor H&H and transfuse as needed --Hypertension; moderate control Continue current antihypertensives and when necessary medications --History of benign prostatic hypertrophy Continue Flomax --DVT prophylaxis with heparin renal dose Closely monitor renal function, possible discharge tomorrow if stable Patient's condition treatment plan discussed in detail with the patient, his nurse as well as case management History Interval history: Patient seen and evaluated this morning medical records reviewed Urology evaluation and recommendations noted Winn catheter draining well, creatinine is trending down Patient feels better no new complaints Hospitalist Physical - Constitutional Vitals: Temp Pulse Resp BP Pulse Ox 99 F 80 16 118/77 98 11/23/16 08:00 11/23/16 08:00 11/23/16 08:00 11/23/16 09:06 11/23/16 08:00 General appearance: Present: no acute distress, well-nourished - EENT Eyes: Present: PERRL, EOM intact - Neck Neck: Present: supple, normal ROM - Respiratory Respiratory effort: normal Respiratory: negative: rales, rhonchi, wheezing - Cardiovascular Rhythm: regular Heart Sounds: Present: S1 & S2 - Extremities Extremities: no ischemia, pulses intact, pulses symmetrical - Abdominal General gastrointestinal: soft, non-tender, non-distended, normal bowel sounds - Integumentary Integumentary: Present: clear, warm - Psychiatric Psychiatric: appropriate mood/affect, cooperative - Neurologic Neurologic: CNII-XII intact, moves all extremities Results - Labs CBC & Chem 7: 11/20/16 10:34 11/23/16 Unknown Labs: Laboratory Last Values WBC 9.5 K/mm3 (4.5-11.0) 11/20/16 10:34 RBC 2.89 M/mm3 (3.65-5.03) L 11/20/16 10:34 Hgb 8.6 gm/dl (11.8-15.2) L 11/20/16 10:34 Hct 25.7 % (35.5-45.6) L 11/20/16 10:34 MCV 89 fl (84-94) 11/20/16 10:34 MCH 30 pg (28-32) 11/20/16 10:34 MCHC 33 % (32-34) 11/20/16 10:34 RDW 14.0 % (13.2-15.2) 11/20/16 10:34 Plt Count 222 K/mm3 (140-440) 11/20/16 10:34 Lymph % (Auto) 15.8 % (13.4-35.0) 11/20/16 10:34 [place] % (Auto) 6.9 % (0.0-7.3) 11/20/16 10:34 Eos % (Auto) 2.4 % (0.0-4.3) 11/20/16 10:34 Baso % (Auto) 0.9 % (0.0-1.8) 11/20/16 10:34 Lymph # 1.5 K/mm3 (1.2-5.4) 11/20/16 10:34 [place] # 0.7 K/mm3 (0.0-0.8) 11/20/16 10:34 Eos # 0.2 K/mm3 (0.0-0.4) 11/20/16 10:34 Baso # 0.1 K/mm3 (0.0-0.1) 11/20/16 10:34 Seg Neutrophils % 74.0 % (40.0-70.0) H 11/20/16 10:34 Seg Neutrophils # 7.0 K/mm3 (1.8-7.7) 11/20/16 10:34 Sodium 139 mmol/L (137-145) D 11/23/16 Unknown Potassium 4.3 mmol/L (3.6-5.0) 11/23/16 Unknown Chloride 105.0 mmol/L (98-107) 11/23/16 Unknown Carbon Dioxide 20 mmol/L (22-30) L 11/23/16 Unknown Anion Gap 18 mmol/L 11/23/16 Unknown BUN 23 mg/dL (9-20) H 11/23/16 Unknown Creatinine 3.2 mg/dL (0.8-1.5) H 11/23/16 Unknown Estimated GFR 24 ml/min 11/23/16 Unknown BUN/Creatinine Ratio 7.18 % 11/23/16 Unknown Glucose 85 mg/dL (75-100) 11/23/16 Unknown Calcium 8.9 mg/dL (8.4-10.2) 11/23/16 Unknown Phosphorus 3.40 mg/dL (2.5-4.5) 11/23/16 Unknown Magnesium 1.70 mg/dL (1.7-2.3) 11/23/16 Unknown Total Bilirubin 0.20 mg/dL (0.1-1.2) 11/19/16 12:53 AST 13 units/L (5-40) 11/19/16 12:53 ALT 16 units/L (7-56) 11/19/16 12:53 Alkaline Phosphatase 50 units/L (35-129) 11/19/16 12:53 Total Protein 7.0 g/dL (6.3-8.2) 11/19/16 12:53 Albumin 3.7 g/dL (3.9-5) L 11/19/16 12:53 Albumin/Globulin Ratio 1.1 % 11/19/16 12:53 Urine Color Yellow (Yellow) 11/19/16 13:28 Urine Turbidity Cloudy (Clear) 11/19/16 13:28 Urine pH 6.0 (5.0-7.0) 11/19/16 13:28 Ur Specific [place] 1.010 (1.003-1.030) 11/19/16 13:28 Urine Protein <15 mg/dl mg/dL (Negative) 11/19/16 13:28 Urine Glucose (UA) Neg mg/dL (Negative) 11/19/16 13:28 Urine Ketones Neg mg/dL (Negative) 11/19/16 13:28 Urine Blood Neg (Negative) 11/19/16 13:28 Urine Nitrite Neg (Negative) 11/19/16 13:28 Urine Bilirubin Neg (Negative) 11/19/16 13:28 Urine Urobilinogen < 2.0 mg/dL (<2.0) 11/19/16 13:28 Ur Leukocyte Esterase Lg (Negative) 11/19/16 13:28 Urine WBC (Auto) > 182.0 /HPF (0.0-6.0) H 11/19/16 13:28 Urine RBC (Auto) 7.0 /HPF (0.0-6.0) 11/19/16 13:28 U Epithel Cells (Auto) < 1.0 /HPF (0-13.0) 11/19/16 13:28 Urine Bacteria (Auto) 1+ /HPF (Negative) 11/19/16 13:28 Urine Yeast (Budding) 2+ /HPF 11/19/16 13:28
--- NOTE | 2016-11-23 14:32 | Progress Note ---
Assessment and Plan - Patient Problems (1) Acute on chronic renal failure Current Visit: Yes Status: Acute Qualifiers: Acute renal failure type: unspecified Chronic kidney disease stage: stage 3 (moderate) Qualified Code(s): N17.9 - Acute kidney failure, unspecified; N18.3 - Chronic kidney disease, stage 3 (moderate) Plan to address problem: Patient in postobstructive diuresis with 4.6 L urine after Winn catheter was placed yesterday evening. Receiving intravenous fluids to prevent volume depletion. Continue IVF till tomorrow and then if stable should be okay to discharge tomorrow (2) Obstructive uropathy Current Visit: No Status: Acute Plan to address problem: Follow-up with Dr. Charles in the morning on as an outpatient (3) Hyperkalemia Current Visit: Yes Status: Acute Plan to address problem: Potassium was improved with treatment (4) Hyponatremia Current Visit: Yes Status: Acute Plan to address problem: Sodium improved. (5) Acidosis, metabolic Current Visit: No Status: Acute Plan to address problem: Continue sodium bicarbonate. Bicarbonate improving. Follow up in the morning (6) BPH (benign prostatic hyperplasia) Current Visit: No Status: Acute Qualifiers: Lower urinary tract symptom presence: L Lower urinary tract symptom detail : L Plan to address problem: Definitive treatment for benign prostatic hyperplasia per Urologist (7) Anemia in chronic kidney disease Current Visit: Yes Status: Acute Qualifiers: Chronic kidney disease stage: C Plan to address problem: Check iron stores. Start erythropoietin if iron stores adequate Subjective Date of service: 11/23/16 Principal diagnosis: UTI and ARF Interval history: Patient seen lying in bed. He feels better today. No nausea vomiting. No abdominal pain Objective - Exam Narrative Exam: Elderly male lying in bed in no acute distress, asthenic build HEENT normocephalic atraumatic, pupils equal reactive to light, pink, clear oropharynx Neck supple, no thyromegaly no jugular venous distention CVS S1-S2 regular rate rhythm without murmur, rub or gallop Chest clear to auscultation Abdomen soft nondistended nontender no organomegaly no bruit bowel sounds present Extremities no edema no cyanosis or clubbing Neuro awake, alert oriented x3 no gross deficit - Vital Signs Vital signs: Vital Signs - 12hr 07/09/17 07/09/17 07/09/17 04:00 08:00 09:06 Temperature 99.2 F 99 F Pulse Rate [ 77 80 Right Radial] Respiratory 16 16 Rate Blood Pressure 118/77 Blood Pressure 107/62 118/70 [Right Arm] O2 Sat by Pulse 98 Oximetry - Lab 11/20/16 10:34 11/23/16 Unknown Most recent lab results Calcium 8.9 mg/dL (8.4-10.2) 11/23/16 Unknown Phosphorus 3.40 mg/dL (2.5-4.5) 11/23/16 Unknown Magnesium 1.70 mg/dL (1.7-2.3) 11/23/16 Unknown
[2016-11-24 05:51] LABS: Calcium 9.1 mg/dL (8.4-10.2); Chloride 102.7 mmol/L (98-107); Potassium 4.2 mmol/L (3.6-5.0)
[2016-11-24] MEDS: SODIUM BICARBONATE PO SCH ×3 (08:22→20:44)
--- NOTE | 2016-11-24 08:34 | Discharge Summary ---
Providers - Providers Date of Admission: 11/19/16 15:58 Date of discharge: 11/24/16 Attending physician: TANIA DAVE 11/21/16 01:03 Consult to Physician [CONS] Routine Consulting Provider: GREGOR PENA Reason For Exam: CKD Place consult to:: dr. pena Notified:: answering service Phone number called:: Was contact made?: Yes If yes, spoke with:: tahmina Time called:: 17:48 11/22/16 14:17 Consult to Physician [CONS] Routine Consulting Provider: MARGRET SANTILLAN Reason For Exam: Obstructive uropathy Place consult to:: Dr Camp Notified:: yes by Etta Primary care physician: [facility] Hospitalization Condition: Stable Disposition: DC-30 STILL A PATIENT Exam - Constitutional Vitals: Temp Pulse Resp BP Pulse Ox 98.3 F 80 20 146/89 98 11/24/16 08:00 11/24/16 08:00 11/24/16 08:00 11/24/16 08:00 11/24/16 08:00 Plan Activity: no restrictions Follow up with: JUSTYN VO MD [Primary Care Provider] - 3-5 Days MARGRET SANTILLAN MD [Staff Physician] - 7 Days GREGOR PENA MD [Staff Physician] - 7 Days
[2016-11-24] MEDS: HEPARIN SUB-Q SCH ×2 (10:00→22:28)
[2016-11-24] MEDS: ROCEPHIN/NS 1 GM/50 ML 1 GM/50 ML BAG IV SCH (10:00)
[2016-11-24] MEDS: NORVASC PO SCH (10:10)
[2016-11-24] MEDS: FLOMAX PO SCH (10:10)
--- NOTE | 2016-11-24 13:21 | Progress Note ---
Assessment and Plan - Patient Problems (1) Acute on chronic renal failure Current Visit: Yes Status: Acute Qualifiers: Acute renal failure type: unspecified Chronic kidney disease stage: stage 3 (moderate) Qualified Code(s): N17.9 - Acute kidney failure, unspecified; N18.3 - Chronic kidney disease, stage 3 (moderate) Plan to address problem: Patient in postobstructive diuresis with 5 L urine on [place]. Renal function improved with Cr down to 2mg/dl. BP stable. Stable for discharge from renal stand point with close f/u with as outpatient. (2) Obstructive uropathy Current Visit: No Status: Acute Plan to address problem: Follow-up with Dr. Charles in the morning on as an outpatient (3) Hyperkalemia Current Visit: Yes Status: Acute Plan to address problem: resolved (4) Hyponatremia Current Visit: Yes Status: Acute Plan to address problem: normalized (5) BPH (benign prostatic hyperplasia) Current Visit: No Status: Acute Qualifiers: Lower urinary tract symptom presence: L Lower urinary tract symptom detail : L Plan to address problem: definitive treatment of BPH as per Subjective Date of service: 11/24/16 Principal diagnosis: UTI and ARF Interval history: pt awake, alert, in NAD. remains on woods Objective - Vital Signs Vital signs: Vital Signs - 12hr 11/24/16 11/24/16 11/24/16 04:00 08:00 10:10 Temperature 98.6 F 98.3 F Pulse Rate 80 Pulse Rate [ 78 80 Right Radial] Respiratory 20 20 Rate Blood Pressure 146/89 Blood Pressure 137/79 146/89 [Right Arm] O2 Sat by Pulse 100 98 Oximetry - General Appearance General appearance: well-developed, well-nourished, appears stated age EENT: ATNC, PERRL, mucous membranes moist Neck: no JVD Respiratory: Present: Clear to Ascultation Cardiology: regular, S1S2 Gastrointestinal: normal, normoactive bowel sounds Integumentary: no rash, other (no edema ) Neurologic: no focal deficit, alert and oriented x3, strength 5/5, CN 3-12 intact Psychiatric: mood/affect appropriate, cooperative - Lab 11/20/16 10:34 11/24/16 05:02 Most recent lab results Calcium 9.1 mg/dL (8.4-10.2) 11/24/16 05:02 Phosphorus 3.40 mg/dL (2.5-4.5) 11/23/16 Unknown Magnesium 1.70 mg/dL (1.7-2.3) 11/23/16 Unknown
[2016-11-24] MEDS: POLYCILLIN PO SCH ×2 (14:24→17:28)
--- NOTE | 2016-11-24 18:40 | Progress Note ---
Assessment and Plan Assessment and plan: --Sepsis secondary to Urinary tract infection Enterococcus faecalis positive urine cultures, DC Rocephin, add ampicillin Follow sensitivities and adjust as needed --Obstructive uropathy /bilateral hydronephrosis /benign prostate hypertrophy / continuous Winn catheterization , symptoms significantly improved Follow urology outpatient for further evaluation and management, --Acute on chronic kidney disease stage III Renal function gradually improving, nephrology following --Anemia probably secondary to acute on chronic kidney disease Closely monitor H&H and transfuse as needed --Hypertension; moderate control Continue current antihypertensives and when necessary medications --History of benign prostatic hypertrophy Continue Flomax, follow urologist upon discharge --DVT prophylaxis with heparin renal dose Closely monitor renal function, possible discharge tomorrow if stable Hospital discharge home once the sensitivities are available Plan of care discussed with the patient, his nurse and case management History Interval history: Seen and evaluated in his room medical records reviewed Urine cultures are positive for Enterococcus faecalis, sensitivity is pending Patient feels better and anxious to go home Alert awake oriented 3 not in acute distress, vital signs reviewed Hospitalist Physical - Constitutional Vitals: Temp Pulse Resp BP Pulse Ox 98.9 F 87 20 119/75 100 11/24/16 12:00 11/24/16 12:00 11/24/16 14:50 11/24/16 12:00 11/24/16 12:00 General appearance: Present: no acute distress, well-nourished - EENT Eyes: Present: PERRL, EOM intact - Neck Neck: Present: supple, normal ROM - Respiratory Respiratory effort: normal Respiratory: bilateral: diminished, negative: rales, rhonchi, wheezing - Cardiovascular Rhythm: regular Heart Sounds: Present: S1 & S2 - Extremities Extremities: no ischemia, pulses intact, pulses symmetrical - Abdominal General gastrointestinal: soft, non-tender, non-distended, normal bowel sounds - Integumentary Integumentary: Present: clear, warm - Psychiatric Psychiatric: appropriate mood/affect, cooperative - Neurologic Neurologic: CNII-XII intact, moves all extremities Results - Labs CBC & Chem 7: 11/20/16 10:34 11/24/16 05:02 Labs: Laboratory Last Values WBC 9.5 K/mm3 (4.5-11.0) 11/20/16 10:34 RBC 2.89 M/mm3 (3.65-5.03) L 11/20/16 10:34 Hgb 8.6 gm/dl (11.8-15.2) L 11/20/16 10:34 Hct 25.7 % (35.5-45.6) L 11/20/16 10:34 MCV 89 fl (84-94) 11/20/16 10:34 MCH 30 pg (28-32) 11/20/16 10:34 MCHC 33 % (32-34) 11/20/16 10:34 RDW 14.0 % (13.2-15.2) 11/20/16 10:34 Plt Count 222 K/mm3 (140-440) 11/20/16 10:34 Lymph % (Auto) 15.8 % (13.4-35.0) 11/20/16 10:34 [place] % (Auto) 6.9 % (0.0-7.3) 11/20/16 10:34 Eos % (Auto) 2.4 % (0.0-4.3) 11/20/16 10:34 Baso % (Auto) 0.9 % (0.0-1.8) 11/20/16 10:34 Lymph # 1.5 K/mm3 (1.2-5.4) 11/20/16 10:34 [place] # 0.7 K/mm3 (0.0-0.8) 11/20/16 10:34 Eos # 0.2 K/mm3 (0.0-0.4) 11/20/16 10:34 Baso # 0.1 K/mm3 (0.0-0.1) 11/20/16 10:34 Seg Neutrophils % 74.0 % (40.0-70.0) H 11/20/16 10:34 Seg Neutrophils # 7.0 K/mm3 (1.8-7.7) 11/20/16 10:34 Sodium 139 mmol/L (137-145) 11/24/16 05:02 Potassium 4.2 mmol/L (3.6-5.0) 11/24/16 05:02 Chloride 102.7 mmol/L (98-107) 11/24/16 05:02 Carbon Dioxide 24 mmol/L (22-30) 11/24/16 05:02 Anion Gap 17 mmol/L 11/24/16 05:02 BUN 16 mg/dL (9-20) 11/24/16 05:02 Creatinine 2.0 mg/dL (0.8-1.5) H 11/24/16 05:02 Estimated GFR 41 ml/min 11/24/16 05:02 BUN/Creatinine Ratio 8.00 % 11/24/16 05:02 Glucose 80 mg/dL (75-100) 11/24/16 05:02 Calcium 9.1 mg/dL (8.4-10.2) 11/24/16 05:02 Phosphorus 3.40 mg/dL (2.5-4.5) 11/23/16 Unknown Magnesium 1.70 mg/dL (1.7-2.3) 11/23/16 Unknown Total Bilirubin 0.20 mg/dL (0.1-1.2) 11/19/16 12:53 AST 13 units/L (5-40) 11/19/16 12:53 ALT 16 units/L (7-56) 11/19/16 12:53 Alkaline Phosphatase 50 units/L (35-129) 11/19/16 12:53 Total Protein 7.0 g/dL (6.3-8.2) 11/19/16 12:53 Albumin 3.7 g/dL (3.9-5) L 11/19/16 12:53 Albumin/Globulin Ratio 1.1 % 11/19/16 12:53 Urine Color Yellow (Yellow) 11/19/16 13:28 Urine Turbidity Cloudy (Clear) 11/19/16 13:28 Urine pH 6.0 (5.0-7.0) 11/19/16 13:28 Ur Specific [place] 1.010 (1.003-1.030) 11/19/16 13:28 Urine Protein <15 mg/dl mg/dL (Negative) 11/19/16 13:28 Urine Glucose (UA) Neg mg/dL (Negative) 11/19/16 13:28 Urine Ketones Neg mg/dL (Negative) 11/19/16 13:28 Urine Blood Neg (Negative) 11/19/16 13:28 Urine Nitrite Neg (Negative) 11/19/16 13:28 Urine Bilirubin Neg (Negative) 11/19/16 13:28 Urine Urobilinogen < 2.0 mg/dL (<2.0) 11/19/16 13:28 Ur Leukocyte Esterase Lg (Negative) 11/19/16 13:28 Urine WBC (Auto) > 182.0 /HPF (0.0-6.0) H 11/19/16 13:28 Urine RBC (Auto) 7.0 /HPF (0.0-6.0) 11/19/16 13:28 U Epithel Cells (Auto) < 1.0 /HPF (0-13.0) 11/19/16 13:28 Urine Bacteria (Auto) 1+ /HPF (Negative) 11/19/16 13:28 Urine Yeast (Budding) 2+ /HPF 11/19/16 13:28
[2016-11-25] MEDS: POLYCILLIN PO SCH ×3 (00:19→12:00)
[2016-11-25 07:39] LABS: BUN/Creatinine Ratio 8.94; Calcium 9.4 mg/dL (8.4-10.2); Chloride 99.9 mmol/L (98-107); Potassium 4.4 mmol/L (3.6-5.0)
--- NOTE | 2016-11-25 08:40 | Progress Note ---
Hospitalist Physical - Constitutional Vitals: Temp Pulse Resp BP Pulse Ox 97.6 F 81 20 119/70 100 11/25/16 00:00 11/25/16 00:00 11/25/16 00:00 11/25/16 00:00 11/25/16 00:00 General appearance: Present: no acute distress, well-nourished Results - Labs CBC & Chem 7: 11/20/16 10:34 11/25/16 06:53 Labs: Laboratory Last Values WBC 9.5 K/mm3 (4.5-11.0) 11/20/16 10:34 RBC 2.89 M/mm3 (3.65-5.03) L 11/20/16 10:34 Hgb 8.6 gm/dl (11.8-15.2) L 11/20/16 10:34 Hct 25.7 % (35.5-45.6) L 11/20/16 10:34 MCV 89 fl (84-94) 11/20/16 10:34 MCH 30 pg (28-32) 11/20/16 10:34 MCHC 33 % (32-34) 11/20/16 10:34 RDW 14.0 % (13.2-15.2) 11/20/16 10:34 Plt Count 222 K/mm3 (140-440) 11/20/16 10:34 Lymph % (Auto) 15.8 % (13.4-35.0) 11/20/16 10:34 [place] % (Auto) 6.9 % (0.0-7.3) 11/20/16 10:34 Eos % (Auto) 2.4 % (0.0-4.3) 11/20/16 10:34 Baso % (Auto) 0.9 % (0.0-1.8) 11/20/16 10:34 Lymph # 1.5 K/mm3 (1.2-5.4) 11/20/16 10:34 [place] # 0.7 K/mm3 (0.0-0.8) 11/20/16 10:34 Eos # 0.2 K/mm3 (0.0-0.4) 11/20/16 10:34 Baso # 0.1 K/mm3 (0.0-0.1) 11/20/16 10:34 Seg Neutrophils % 74.0 % (40.0-70.0) H 11/20/16 10:34 Seg Neutrophils # 7.0 K/mm3 (1.8-7.7) 11/20/16 10:34 Sodium 137 mmol/L (137-145) 11/25/16 06:53 Potassium 4.4 mmol/L (3.6-5.0) 11/25/16 06:53 Chloride 99.9 mmol/L (98-107) 11/25/16 06:53 Carbon Dioxide 24 mmol/L (22-30) 11/25/16 06:53 Anion Gap 18 mmol/L 11/25/16 06:53 BUN 17 mg/dL (9-20) 11/25/16 06:53 Creatinine 1.9 mg/dL (0.8-1.5) H 11/25/16 06:53 Estimated GFR 43 ml/min 11/25/16 06:53 BUN/Creatinine Ratio 8.94 % 11/25/16 06:53 Glucose 81 mg/dL (75-100) 11/25/16 06:53 Calcium 9.4 mg/dL (8.4-10.2) 11/25/16 06:53 Phosphorus 3.40 mg/dL (2.5-4.5) 11/23/16 Unknown Magnesium 1.70 mg/dL (1.7-2.3) 11/23/16 Unknown Total Bilirubin 0.20 mg/dL (0.1-1.2) 11/19/16 12:53 AST 13 units/L (5-40) 11/19/16 12:53 ALT 16 units/L (7-56) 11/19/16 12:53 Alkaline Phosphatase 50 units/L (35-129) 11/19/16 12:53 Total Protein 7.0 g/dL (6.3-8.2) 11/19/16 12:53 Albumin 3.7 g/dL (3.9-5) L 11/19/16 12:53 Albumin/Globulin Ratio 1.1 % 11/19/16 12:53 Urine Color Yellow (Yellow) 11/19/16 13:28 Urine Turbidity Cloudy (Clear) 11/19/16 13:28 Urine pH 6.0 (5.0-7.0) 11/19/16 13:28 Ur Specific [place] 1.010 (1.003-1.030) 11/19/16 13:28 Urine Protein <15 mg/dl mg/dL (Negative) 11/19/16 13:28 Urine Glucose (UA) Neg mg/dL (Negative) 11/19/16 13:28 Urine Ketones Neg mg/dL (Negative) 11/19/16 13:28 Urine Blood Neg (Negative) 11/19/16 13:28 Urine Nitrite Neg (Negative) 11/19/16 13:28 Urine Bilirubin Neg (Negative) 11/19/16 13:28 Urine Urobilinogen < 2.0 mg/dL (<2.0) 11/19/16 13:28 Ur Leukocyte Esterase Lg (Negative) 11/19/16 13:28 Urine WBC (Auto) > 182.0 /HPF (0.0-6.0) H 11/19/16 13:28 Urine RBC (Auto) 7.0 /HPF (0.0-6.0) 11/19/16 13:28 U Epithel Cells (Auto) < 1.0 /HPF (0-13.0) 11/19/16 13:28 Urine Bacteria (Auto) 1+ /HPF (Negative) 11/19/16 13:28 Urine Yeast (Budding) 2+ /HPF 11/19/16 13:28
[2016-11-25] MEDS: SODIUM BICARBONATE PO SCH (08:49)
--- NOTE | 2016-11-25 08:50 | Consultation ---
History of Present Illness - Reason for Consult Consult date: 11/25/16 Complicated UTI Requesting physician: TANIA DAVE - History of Present Illness Mr. Snow is a 66-year-old man admitted with generalized weakness and found to have an elevated creatinine secondary to obstructive uropathy. A renal ultrasound showed bilateral hydronephrosis and bladder outlet obstruction with debris. An indwelling Winn was placed with several liters of post-obstructive diuresis. Also, a urine culture was performed showing growth of Staph aureus and Enterococcus faecalis. He is presently on Ampicillin. ID consultation is requested for treatment recommendations and to establish outpatient ID follow- up. 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 He is originally from [facility]) . denies: smoking, alcohol abuse, prescription drug abuse Family history: cancer (Sister has breast cancer), hypertension, stroke (Father of a stroke), other (Mother of tuberculosis at a young age. He has 25 siblings) Medications and Allergies Allergies Allergy/AdvReac Type Severity Reaction Status Date / Time aspirin AdvReac Bleeding Verified 10/31/16 20:34 Home Medications Medication Instructions Recorded Confirmed Last Taken Type Sodium Bicarbonate 650 mg PO TID #90 tablet 11/03/16 11/19/16 Unknown Rx Tamsulosin [Flomax] 0.4 mg PO QDAY #30 capsule 11/03/16 11/19/16 Unknown Rx amLODIPine [Norvasc] 10 mg PO QDAY #30 tablet 11/03/16 11/19/16 Unknown Rx Doxycycline [Vibramycin CAP] 100 mg PO BID #28 capsule 11/25/16 Unknown Rx Active Meds: Active Medications Acetaminophen (Tylenol) 650 mg PO Q4H PRN PRN Reason: Pain MILD(1-3)/Fever >100.5/EDWARDS Last Admin: 11/23/16 00:59 Dose: 650 mg Albuterol (Proventil) 2.5 mg IH Q4HRT PRN PRN Reason: Shortness Of Breath Amlodipine Besylate (Norvasc) 10 mg PO DAILY [place] Last Admin: 11/24/16 10:10 Dose: 10 mg Ampicillin (Polycillin) 500 mg PO Q6HR [facility] Last Admin: 11/25/16 05:53 Dose: 500 mg Bisacodyl (Dulcolax) 10 mg MA QDAY PRN PRN Reason: Constipation unrelieved by MOM Heparin Sodium (Porcine) (Heparin) 5,000 unit SUB-Q Q12HR [facility] Last Admin: 11/24/16 22:28 Dose: 5,000 unit Sodium Chloride (Nacl 0.45% 1000 Ml) 1,000 mls @ 100 mls/hr IV DIRECT [facility] Last Admin: 11/23/16 18:12 Dose: 100 mls/hr Magnesium Hydroxide (Milk Of Magnesia) 30 ml PO Q4H PRN PRN Reason: Constipation Ondansetron HCl (Zofran) 4 mg IV Q8H PRN PRN Reason: N/V unrelieved by Reglan Sodium Bicarbonate (Sodium Bicarbonate) 650 mg PO TID [facility] Last Admin: 11/24/16 20:44 Dose: 650 mg Tamsulosin HCl (Flomax) 0.4 mg PO QDAY [facility] Last Admin: 11/24/16 10:10 Dose: 0.4 mg Review of Systems All systems: negative Constitutional: weakness (improved), no fever, no chills Cardiovascular: no chest pain, no palpitations Respiratory: no cough, no shortness of breath Gastrointestinal: no abdominal pain, no nausea, no vomiting, no diarrhea Genitourinary Male: no hematuria, no discharge Integumentary: no rash, no pruritis Physical Examination - Constitutional Vitals: Vital Signs Temp Pulse Resp BP Pulse Ox 97.6 F 81 20 119/70 100 11/25/16 00:00 11/25/16 00:00 11/25/16 00:00 11/25/16 00:00 11/25/16 00:00 Temperature -Last 24 Hours Temperature 97.6 F Temperature 97.8 F Temperature 98.9 F General appearance: Present: no acute distress - EENT Eyes: Absent: conjunctival injection ENT: clear oral mucosa - Respiratory Respiratory effort: normal Respiratory: bilateral: CTA - Cardiovascular Rhythm: regular Heart Sounds: Present: S1 & S2 - Extremities Extremities: No edema - Abdominal General gastrointestinal: Present: soft, non-distended Male genitourinary: Present: normal (Winn with collection bag strapped to right leg, clear urine collected) - Integumentary Integumentary: Present: clear. Absent: rash - Psychiatric Psychiatric: appropriate mood/affect - Neurologic Neurologic: moves all extremities Results - Labs CBC & Chem 7: 11/20/16 10:34 11/25/16 06:53 Labs: Abnormal lab results 11/25/16 Range/Units 06:53 Creatinine 1.9 H (0.8-1.5) mg/dL Microbiology Microbiology 11/22/16 17:44 Urine,Catheterized - Straight Catheter Urine Culture - Final Enterococcus Faecalis 11/19/16 Unknown Urine,Clean Catch Urine Culture - Final Enterococcus Faecalis Staphylococcus Aureus Assessment and Plan - Patient Problems (1) UTI (urinary tract infection) Status: Acute Qualifiers: Urinary tract infection type: acute cystitis Hematuria presence: without hematuria Indwelling urinary catheter type: I Encounter type: E Qualified Code(s): N30.00 - Acute cystitis without hematuria Plan to address problem: 1. Updated culture data were reviewed. Growth of Staph aureus and Enterococcus faecalis. 2. Will change Ampicillin to Doxycycline to complete an anticipated 14-day course. 3. Patient has been instructed to follow-up in my office in 7-10 days as well as follow-up with urology.
[2016-11-25 09:12] VITALS: BP 119/79
--- NOTE | 2016-11-25 09:18 | Progress Note ---
Assessment and Plan - Patient Problems (1) Acute on chronic renal failure Current Visit: Yes Status: Acute Qualifiers: Acute renal failure type: unspecified Chronic kidney disease stage: stage 3 (moderate) Qualified Code(s): N17.9 - Acute kidney failure, unspecified; N18.3 - Chronic kidney disease, stage 3 (moderate) Plan to address problem: Renal function improving on woods with Cr down to 1.9mg/dl. BP stable. Stable for discharge from renal stand point. (2) Obstructive uropathy Current Visit: No Status: Acute Plan to address problem: Follow-up with Dr. Charles in the morning on as an outpatient (3) Hyperkalemia Current Visit: Yes Status: Acute Plan to address problem: resolved (4) Hyponatremia Current Visit: Yes Status: Acute Plan to address problem: normalized (5) BPH (benign prostatic hyperplasia) Current Visit: No Status: Acute Qualifiers: Lower urinary tract symptom presence: L Lower urinary tract symptom detail : L Plan to address problem: definitive treatment of BPH as per Subjective Date of service: 11/25/16 Principal diagnosis: UTI and ARF Interval history: pt awake, alert, in NAD. remains on woods Objective - Vital Signs Vital signs: Vital Signs - 12hr 11/25/16 11/25/16 00:00 08:00 Temperature 97.6 F 98.5 F Pulse Rate [ 81 82 Right Radial] Respiratory 20 18 Rate Blood Pressure 119/70 119/79 [Right Arm] O2 Sat by Pulse 100 98 Oximetry - General Appearance General appearance: well-developed, well-nourished, appears stated age EENT: ATNC, PERRL, mucous membranes moist Neck: no JVD Respiratory: Present: Clear to Ascultation Cardiology: regular, S1S2 Gastrointestinal: normal, normoactive bowel sounds Integumentary: no rash, other (no edema ) Neurologic: no focal deficit, alert and oriented x3, strength 5/5, CN 3-12 intact Psychiatric: mood/affect appropriate, cooperative - Lab 11/20/16 10:34 11/25/16 06:53 Most recent lab results Calcium 9.4 mg/dL (8.4-10.2) 11/25/16 06:53 Phosphorus 3.40 mg/dL (2.5-4.5) 11/23/16 Unknown Magnesium 1.70 mg/dL (1.7-2.3) 11/23/16 Unknown
[2016-11-25] MEDS: HEPARIN SUB-Q SCH (11:37)
[2016-11-25] MEDS: FLOMAX PO SCH (11:38)
[2016-11-25] MEDS: NORVASC PO SCH (11:38)
--- NOTE | 2016-11-25 11:49 | Discharge Summary ---
Providers - Providers Date of Admission: 11/19/16 15:58 Date of discharge: 11/25/16 Attending physician: TANIA DAVE 11/21/16 01:03 Consult to Physician [CONS] Routine Consulting Provider: GREGOR PENA Reason For Exam: CKD Place consult to:: dr. pena Notified:: answering service Phone number called:: Was contact made?: Yes If yes, spoke with:: tahmina Time called:: 17:48 11/22/16 14:17 Consult to Physician [CONS] Routine Consulting Provider: MARGRET SANTILLAN Reason For Exam: Obstructive uropathy Place consult to:: Dr Camp Notified:: yes by Etta 11/25/16 08:32 Consult to Physician [CONS] Routine Consulting Provider: FABIÁN VILLATORO Reason For Exam: enterococcus fecalis urine cultures Place consult to:: Notified:: DR. VILLATORO Phone number called:: IN HOUSE Was contact made?: Yes If yes, spoke with:: DR. SINAN CAMACHO Time called:: 09:06 Primary care physician: [employer] Hospitalization Condition: Stable Disposition: DC-01 TO HOME OR SELFCARE Core Measure Documentation - Palliative Care Palliative Care/ Comfort Measures: Not Applicable - Core Measures Any of the following diagnoses?: none Exam - Constitutional Vitals: Temp Pulse Resp BP Pulse Ox 98.5 F 82 18 119/79 98 11/25/16 08:00 11/25/16 08:00 11/25/16 08:00 11/25/16 08:00 11/25/16 08:00 General appearance: Present: no acute distress, well-nourished - EENT Eyes: Present: PERRL, EOM intact - Neck Neck: Present: supple, normal ROM - Respiratory Respiratory effort: normal Respiratory: negative: rales, rhonchi, wheezing - Cardiovascular Rhythm: regular Heart Sounds: Present: S1 & S2 - Extremities Extremities: no ischemia Peripheral Pulses: within normal limits - Abdominal General gastrointestinal: Present: soft, non-tender, non-distended, normal bowel sounds - Integumentary Integumentary: Present: clear, warm - Musculoskeletal Musculoskeletal: strength equal bilaterally - Psychiatric Psychiatric: appropriate mood/affect, cooperative - Neurologic Neurologic: CNII-XII intact, moves all extremities Plan Activity: no restrictions Diet: regular Follow up with: MARGRET SANTILLAN MD [Staff Physician] - 7 Days GREGOR PENA MD [Staff Physician] - 7 Days PRIMARY CARE, [Primary Care Provider] - 3-5 Days FABIÁN VILLATORO MD [Staff Physician] - 7 Days Prescriptions: Doxycycline [Vibramycin CAP] 100 mg PO BID #28 capsule
[2016-11-25] MEDS ORDERED: VIBRAMYCIN PO SCH (12:00)
== END 2016-11-25 13:20 | disposition home or self-care (01) | DRG 871 ==
LOC: ED 12:22 → 3A 15:58
PROVIDERS: ADMIT Internal Medicine; ATTEND Internal Medicine
DX: A41.9 Sepsis, unspecified organism (principal); E43 Unspecified severe protein-calorie malnutrition; N17.9 Acute kidney failure, unspecified; N39.0 Urinary tract infection, site not specified; N13.1 Hydronephrosis with ureteral stricture, not elsewhere classified; E87.1 Hypo-osmolality and hyponatremia; E87.5 Hyperkalemia; N18.3 Chronic kidney disease, stage 3 (moderate); N13.9 Obstructive and reflux uropathy, unspecified; D63.1 Anemia in chronic kidney disease; N40.1 Benign prostatic hyperplasia with lower urinary tract symptoms; B95.2 Enterococcus as the cause of diseases classified elsewhere; I12.9 Hypertensive chronic kidney disease with stage 1 through stage 4 chronic kidney disease, or unspecified chronic kidney disease; Z88.6 Allergy status to analgesic agent; Z79.899 Other long term (current) drug therapy; Z68.20 Body mass index [BMI] 20.0-20.9, adult; Z82.49 Family history of ischemic heart disease and other diseases of the circulatory system; Z82.3 Family history of stroke
CPT/HCPCS: 36415; 76770; 80048; 80053; 81001; 83735; 84100; 85025; 87076; 87086; 87186; 96365; 99285; J0696; J1644; J7030

== ENCOUNTER 2016-12-24 10:59 | Inpatient (IN) | payer MEDICARE ==
--- NOTE | 2016-12-23 09:52 | Anesthesia Consultation ---
Anesthesia Consult and Med Hx Date of service: 12/23/16 - Airway Anesthetic Teeth Evaluation: Good ROM Head & Neck: Adequate Mental/Hyoid Distance: Adequate Mallampati Class: Class II Intubation Access Assessment: Probably Good - Pulmonary Exam CTA: Yes - Cardiac Exam Cardiac Exam: RRR - Pre-Operative Health Status ASA Pre-Surgery Classification: ASA2 Proposed Anesthetic Plan: General - Cardiovascular System Hx Hypertension: Yes (X 2 MONTHS) - Hematic Hx Anemia: Yes
[2016-12-23 10:02] LABS: Basophils % (Auto) 1.3 % (0.0-1.8); Eosinophils % (Auto) 6.3 % (0.0-4.3); Hematocrit 35.6 % (35.5-45.6); Hemoglobin 11.5 gm/dl (11.8-15.2); Mean Corpuscular HGB Conc 32 % (32-34); Mean Corpuscular Hemoglobin 30 pg (28-32); Mean Corpuscular Volume 94 fl (84-94); Platelet Count 200 K/mm3 (140-440); Red Blood Count 3.78 M/mm3 (3.65-5.03); Red Cell Distribution Width 17.4 % (13.2-15.2); White Blood Count 5.9 K/mm3 (4.5-11.0)
[2016-12-23 10:20] LABS: Albumin/Globulin Ratio 1.1 %; Bilirubin,Total 0.3 mg/dL (0.1-1.2); Calcium 9.6 mg/dL (8.4-10.2); Chloride 104.9 mmol/L (98-107); Potassium 4.9 mmol/L (3.6-5.0); Total Protein 7.6 g/dL (6.3-8.2)
[2016-12-23 10:28] LABS: INR 1.02 (0.87-1.13)
[2016-12-23 10:29] LABS: Partial Thromboplastin Time 26.6 Sec. (24.2-36.6)
[~2016-12-24 10:59] MED LIST: ANCEF/STERILE WATER 2 GM/20 ML IV NR; LACTATED RINGERS 1,000 ML IV SCH; PEPCID PO NR; VERSED IV NR
[2016-12-24] MEDS ORDERED: XYLOCAINE MPF 2% ONE (12:58)
[2016-12-24] MEDS ORDERED: DIPRIVAN 10 MG/ML IV ONE (12:59)
[2016-12-24] MEDS ORDERED: SUBLIMAZE ONE (12:59)
[2016-12-24] MEDS ORDERED: SORBITOL-MANNITOL IRRIG IR ONE (13:33)
[2016-12-24] MEDS ORDERED: GARAMYCIN ONE (13:42)
[2016-12-24] MEDS ORDERED: NACL 0.9% 250ML 0 ML ONE (13:43)
[2016-12-24] MEDS ORDERED: WATER FOR IRRIG STERILE IR ONE (13:46)
[2016-12-24] MEDS ORDERED: ZOFRAN ONE (13:59)
[2016-12-24] MEDS ORDERED: NACL 0.9% IR ONE (13:59)
[2016-12-24] MEDS ORDERED: NACL 0.9% 100 ML ONE (13:59)
[2016-12-24] MEDS ORDERED: ZOFRAN IV PRN (14:07)
[2016-12-24] MEDS ORDERED: AMBIEN PO PRN (14:07)
[2016-12-24] MEDS ORDERED: MORPHINE IV PRN (14:07)
[2016-12-24] MEDS ORDERED: NARCAN 0.4 MG/1 ML IV PRN (14:07)
--- NOTE | 2016-12-24 14:07 | Short Stay Summary ---
Short Stay Documentation Date of service: 12/24/16 - History H&P: obtained from office - Allergies and Medications Current Medications: Allergies aspirin Adverse Reaction (Verified 10/31/16 20:34) Bleeding Home Medications Medication Instructions Recorded Confirmed Last Taken Type Sodium Bicarbonate 650 mg PO TID #90 tablet 11/03/16 12/24/16 12/22/16 Rx Tamsulosin [Flomax] 0.4 mg PO QDAY #30 capsule 11/03/16 12/24/16 12/23/16 Rx amLODIPine [Norvasc] 10 mg PO QDAY #30 tablet 11/03/16 12/24/16 12/24/16 Rx Active Medications Cefazolin Sodium (Ancef/Sterile Water 2 Gm/20 Ml) 2 gm IV PREOP NR Stop: 12/24/16 23:59 Famotidine (Pepcid) 20 mg PO PREOP NR Stop: 12/24/16 23:59 Last Admin: 12/24/16 11:47 Dose: 20 mg Lactated Ringer's (Lactated Ringers) 1,000 mls @ 100 mls/hr IV DIRECT LOGAN Stop: 12/24/16 23:59 Last Admin: 12/24/16 11:45 Dose: 100 mls/hr Midazolam HCl (Versed) 2 mg IV PREOP NR Stop: 12/24/16 23:59 Last Admin: 12/24/16 11:51 Dose: 2 mg - Brief post op/procedure progress note Date of procedure: 12/24/16 Pre-op diagnosis: BPH, NODULE- RT, RETENTION Post-op diagnosis: same Procedure: CYSTO, RPG, TURP, DIGITAL PROSTATE BX Anesthesia: GETA Surgeon: MARGRET SANTILLAN Estimated blood loss: minimal Pathology: list (PROSTATE CHIPS, CORES X 2) Specimen disposition: to lab Condition: stable - Hospital course Hospital course: [facility] ON CHART - Disposition Condition at discharge: Stable Disposition: DC-01 TO HOME OR SELFCARE Short Stay Discharge Plan Follow up with: DR GEOVANI [Other] - 7 Days
[2016-12-24] MEDS ORDERED: DILAUDID ONE (14:23)
--- NOTE | 2016-12-24 14:26 | Admit Criteria Form ---
Admission Criteria Documentation: UROLOGIC DISEASE G Clinical Indications for Admission to Inpatient Care (Place ' X' for any and all applicable criteria): Hospital admission is needed for appropriate care of the patient because of 1 or more of the following: [ ]I. New-onset Reduced urine output, or hydronephrosis remaining after emergency or observation level care (as appropriate ) [ ]II. Renal disease needing inpatient care indicated by 1 or more of the following(2)(3)(4): [ ]a) Acute renal failure [ ]b) Significant uremic complications [ ]c) Acute kidney injury (that does not qualify as Acute renal failure ) requiring inpatient care indicated by ALL of the following(5)(6)(7)(8) (9): [ ]i) Worsening clinical status (eg, rising creatinine) despite outpatient and observation care treatment (eg, hydration) [ ]ii) Acute kidney injury indicated by 1 or more of the following: [ ]1) 2-fold or more rise in serum creatinine from baseline [ ]2) Reduction of more than 50% in estimated glomerular filtration rate from baseline [ ]3) Urine output less than 0.5 mL/kg/hr for 12 hours despite adequate volume status [ ]d) Systemic cause (eg, Goodpasture syndrome ) needing inpatient care [ ]e) Rapidly progressive renal disease needing inpatient care (eg, plasmapheresis, immunosuppression ) Anasarca needing inpatient care [ ]f) Hemoptysis [ ]g) Hemolysis, thrombosis, or infraction [ ]h) Anasarca needing inpatient care [ ]III. New-onset or uncontrolled nephrogenic diabetes insipidus [ ]IV. Urologic infection requiring inpatient care as indicated by 1 or more of the following(10)(11)(12): [ ]a) Hemodynamic instability [ ]b) Dehydration that is severe or persistent [ ]c) Failure of outpatient treatment [ ]d) Celeste's gangrene [ ]e) Urinary obstruction [ ]f) Immunocompromised state (eg, chronic steroid use ) [ ]g) Known renal or urologic abnormalities(eg, indwelling catheter, structural abnormalities ) [ ]h) Recent urologic manipulation or procedure Urinary obstruction [ ]i) Abscess requiring drainage Immunocompromised state [ ]V. Acute urinary retention requiring inpatient management as indicated by ANY ONE of the following(1)(13): [ ]a) Retention cannot be alleviated via emergency or observation level care (eg, urinary catheter placement) [ ]b) Hemodynamic instability [ ]c) Acute neurologic etiology (eg, cauda equina) [ ]d) Dehydration or other complications not manageable with emergency or observation level care [ ]e) Acute kidney injury (that does not qualify as Acute renal failure ) requiring inpatient care indicated by ALL of the following(5)(6)(7)(8) (9): [ ]i) Acute kidney injury indicated by ANY ONE of the following: [ ]1) 2-fold or more rise in serum creatinine from baseline [ ]2) Reduction of more than 50% in estimated glomerular filtration rate from baseline [ ]ii) Worsening clinical status (eg, rising creatinine) despite outpatient and observation care treatment (eg, hydration) [ ]. Gross hematuria requiring inpatient management as indicated by ANY ONE of the following(1)(2): [ ]a) Evidence of renal obstruction [ ]b) Reduced urine output [ ]c) Clot retention after urinary catheterization and irrigation [ ]d) Severe Anemia [ ]e) Systemic cause needing inpatient treatment (eg, Goodpasture syndrome) [ ]VII. Priapism not responsive to emergency or observation care treatment [ ]VII. Scrotal, testicular, or epididymal disorder requiring inpatient care indicated by 1 or more of the following(1)(14)(15)(16): [ ]a) Scrotal edema or infection not manageable with emergency or observation level care [ ]b) Orchitis not manageable with emergency or observation level care [ ]c) Epididymitis not manageable with emergency or observation level of care [ ]d) Other scrotal, testicular, or epididymal disorder (eg, infection, inflammation) not manageable with emergency or observation level care [ ]IX. Complications of transplanted kidney indicated by 1 or more of the following [ ]a) Acute graft rejection requiring inpatient management (eg, intravenous immunosuppression) [ ]b) Acute kidney injury indicated by ALL of the following i) Acute kidney injury indicated by 1 or more of the following 1) 2-fold or more rise in serum creatinine from baseline 2) Reduction of more than 50% in estimated glomerular filtration rate from baseline 3) Urine output less than 0.5 mL/kg/hr for 12 hours despite adequate volume status ii) Kidney injury too severe or not responsive to outpatient and observation care treatment (eg, hydration) [ ]c) Infection requiring inpatient management (eg, Hemodynamic instability, need for intravenous antimicrobial treatment) [ ]d) Other complication of transplanted kidney requiring patient management (eg, severe diarrhea leading to malabsorption) [ ]X. Trauma to renal, genital, or urologic system requiring inpatient medical care [X ]XI. Urologic Disease condition, symptom, or finding for which emergency and observation care have failed or are not considered appropriate. The original [employer] content created by [employer] has been revised. The portions of the content which have been revised are identified through the use of italic text or in bold, and [facility] has neither reviewed nor approved the modified material. All other unmodified content is copyright [employer]. Please see references footnoted in the original [employer] edition 2016 Admission Criteria Met: Yes
[2016-12-24] MEDS ORDERED: NACL 0.9% 1,000 ML IR ONE (14:42)
[2016-12-24] MEDS ORDERED: DILAUDID IV PRN (14:56)
[2016-12-24] MEDS ORDERED: LACTATED RINGERS 1,000 ML IV SCH (15:00)
--- NOTE | 2016-12-24 15:18 | Post Anesthesia Evaluation ---
- Post Anesthesia Evaluation Patient Participated: Yes Airway Patent: Yes Stable Respiratory Function: Yes Nausea/Vomiting: No Temp > 96.8F: Yes Pain Manageable: Yes Adequeate Hydration: Yes Anesthesia Complications: No Block Receding Appropriately: Not Applicable Patient on Ventilator: No
--- NOTE | 2016-12-24 18:16 | Event Note ---
Date: 12/24/16 s/p TURP on floor , resting well nurse at bedside woods clear irrigates well discussed with Dr. Olsen
[2016-12-24] MEDS: DILAUDID IV PRN (19:06)
[2016-12-24] MEDS: ANCEF/NS 1 GM/50 ML 1 GM/50 ML BAG IV SCH (19:07)
[2016-12-24] MEDS: SODIUM BICARBONATE PO SCH (20:24)
--- NOTE | 2016-12-24 20:46 | Operative Report ---
PREOPERATIVE DIAGNOSES: Benign prostatic hypertrophy, urinary retention. POSTOPERATIVE DIAGNOSES: Benign prostatic hypertrophy, urinary retention, right prostatic nodule PROCEDURE: Cystoscopy, bilateral retrograde pyelograms, transurethral resection of prostate, digital transrectal prostate biopsy. SURGEON: Jeffy Charles MD ANESTHESIA: General. ESTIMATED BLOOD LOSS: Minimal. FLUIDS: Crystalloid. COMPLICATIONS: No complications. INDICATIONS: This patient is a 66-year-old gentleman initially seen in the hospital who developed urinary retention and went to the Emergency Room. He was placed on Flomax, failed his voiding trial. We discussed options. He agreed to proceed with surgical intervention. DESCRIPTION OF PROCEDURE: The patient was taken to the operative suite, placed in a supine position. After adequate general anesthesia, placed in a dorsal lithotomy position, prepped and draped in a sterile fashion. Pancystourethroscopy was performed with 22-Marshallese Storz cystoscope. No urethral abnormalities. His prostate revealed moderate trilobar prostatic obstruction with a significant median lobe. His bladder, no tumors or stones were noted; however, he does have diffuse trabeculation. Bilateral retrograde pyelograms were obtained with an 8-Marshallese Cochran catheter and 8 mL of contrast. No filling defects or obstruction on the right. He does have some J-hooking bilaterally, was not able to get a good retrograde on the left due to the J-hooking and I elected to not pursue further evaluation. Using a 27-Marshallese resectoscope and loop with the cutting and coag on 160 and 60, transurethral resection of the prostate was performed in a systematic fashion, taking down the median lobe and the right and left lateral lobes respectively. Chips were evacuated out with the [employer] evacuator. Adequate hemostasis was achieved. Upon completion, the veru and external sphincter as well as the ureteral orifices were intact. On rectal exam, he had enlarged prostate with some asymmetry and possible nodule on the right side and therefore a biopsy, transrectal biopsy was taken bilaterally with the biopsy gun and sent for routine pathologic evaluation. The patient tolerated the procedure well and was extubated and taken to recovery room in stable condition. He will be observed overnight and go home on [facility] and [place]. JOB# [id number] [facility]
--- NOTE | 2016-12-24 21:30 | Consultation ---
History of Present Illness - Reason for Consult Consult date: 12/24/16 Medical management Requesting physician: MARGRET SANTILLAN - History of Present Illness S/p TURP- postop doing well. Past History Past Medical History: hypertension, other (BPH) Past Surgical History: TURP Social history: lives with family Family history: hypertension Medications and Allergies Allergies Allergy/AdvReac Type Severity Reaction Status Date / Time aspirin AdvReac Bleeding Verified 10/31/16 20:34 Home Medications Medication Instructions Recorded Confirmed Last Taken Type Sodium Bicarbonate 650 mg PO TID #90 tablet 11/03/16 12/24/16 12/22/16 Rx Tamsulosin [Flomax] 0.4 mg PO QDAY #30 capsule 11/03/16 12/24/16 12/23/16 Rx amLODIPine [Norvasc] 10 mg PO QDAY #30 tablet 11/03/16 12/24/16 12/24/16 Rx Active Meds: Active Medications Acetaminophen/Hydrocodone Bitart ([place] 5/325) 2 each PO Q4H PRN PRN Reason: Pain, Moderate (4-6) Amlodipine Besylate (Norvasc) 10 mg PO QDAY LOGAN Cefazolin Sodium (Ancef/Sterile Water 2 Gm/20 Ml) 2 gm IV PREOP NR Stop: 12/24/16 23:59 Famotidine (Pepcid) 20 mg PO PREOP NR Stop: 12/24/16 23:59 Last Admin: 12/24/16 11:47 Dose: 20 mg Hydromorphone HCl (Dilaudid) 0.5 mg IV Q10MIN PRN PRN Reason: Pain , Severe (7-10) Stop: 12/27/16 14:57 Last Admin: 12/24/16 15:15 Dose: 0.5 mg Hydromorphone HCl (Dilaudid) 1 mg IV Q3H PRN PRN Reason: Pain , Severe (7-10) Last Admin: 12/24/16 19:06 Dose: 1 mg Lactated Ringer's (Lactated Ringers) 1,000 mls @ 100 mls/hr IV DIRECT LOGAN Stop: 12/24/16 23:59 Last Admin: 12/24/16 11:45 Dose: 100 mls/hr Cefazolin Sodium (Ancef/Ns 1 Gm/50 Ml) 1 gm in 50 mls @ 100 mls/hr IV Q8H LOGAN PRN Reason: Protocol Stop: 12/25/16 02:29 Last Admin: 12/24/16 19:07 Dose: 100 mls/hr Lactated Ringer's (Lactated Ringers) 1,000 mls @ 100 mls/hr IV DIRECT LOGAN Last Admin: 12/24/16 19:07 Dose: 100 mls/hr Midazolam HCl (Versed) 2 mg IV PREOP NR Stop: 12/24/16 23:59 Last Admin: 12/24/16 11:51 Dose: 2 mg Morphine Sulfate (Morphine) 2 mg IV Q4H PRN PRN Reason: Pain, Moderate (4-6) Naloxone HCl (Narcan 0.4 Mg/1 Ml) 0.1 mg IV Q2MIN PRN PRN Reason: Res Rate </= 8 or 02 SAT < 92% Ondansetron HCl (Zofran) 4 mg IV Q8H PRN PRN Reason: Nausea And Vomiting Sodium Bicarbonate (Sodium Bicarbonate) 650 mg PO TID LOGAN Last Admin: 12/24/16 20:24 Dose: 650 mg Sodium Chloride (Nacl 0.9%) 2,000 ml IR DIRECT LOGAN Zolpidem Tartrate (Ambien) 5 mg PO QHS PRN PRN Reason: Sleep Review of Systems All systems: negative Exam - Physical Exam Narrative exam: Lying comfortably - Constitutional Vitals: Temp Pulse Resp BP Pulse Ox 98.3 F 75 16 141/80 99 12/24/16 19:00 12/24/16 19:00 12/24/16 19:00 12/24/16 19:00 12/24/16 19:00 General appearance: Present: no acute distress, well-nourished - EENT Eyes: Present: PERRL ENT: hearing intact, clear oral mucosa - Neck Neck: Present: supple, normal ROM - Respiratory Respiratory effort: normal Respiratory: bilateral: CTA - Cardiovascular Heart Sounds: Present: S1 & S2. Absent: rub, click - Extremities Extremities: no ischemia, pulses intact, pulses symmetrical, No edema Peripheral Pulses: within normal limits - Abdominal General gastrointestinal: Present: soft, non-tender, non-distended, normal bowel sounds Male genitourinary: Present: normal - Integumentary Integumentary: Present: clear, warm, dry - Musculoskeletal Musculoskeletal: gait normal, strength equal bilaterally - Psychiatric Psychiatric: appropriate mood/affect, intact judgment & insight - Neurologic Neurologic: CNII-XII intact, moves all extremities Results - Labs CBC & Chem 7: 12/23/16 09:35 12/23/16 09:35 Assessment and Plan - Patient Problems (1) S/P TURP Current Visit: Yes Status: Acute Plan to address problem: post op doing well (2) HTN (hypertension) Current Visit: Yes Status: Chronic Qualifiers: Hypertension type: essential hypertension Qualified Code(s): I10 - Essential (primary) hypertension Plan to address problem: Cont Amlodipine (3) YANETH (acute kidney injury) Current Visit: Yes Status: Acute Plan to address problem: Cr 1.7-Acute versus chronic.Bun/cr was 27/4.6 on 11/23/15 which has improved to 1.7.1.7 is baseline. (4) BPH (benign prostatic hyperplasia) Current Visit: No Status: Chronic Qualifiers: Lower urinary tract symptom presence: symptoms present Lower urinary tract symptom detail: weak urinary stream Qualified Code(s): N40.1 - Benign prostatic hyperplasia with lower urinary tract symptoms; R39.12 - Poor urinary stream Plan to address problem: S/p TURP-Flomax was not restarted (5) DVT prophylaxis Current Visit: No Status: Acute Plan to address problem: SCD's only
[2016-12-24] MEDS: NACL 0.9% IR SCH ×5 (21:35→23:57)
[2016-12-24] MEDS: NORCO 5/325 PO PRN (21:50)
[2016-12-24] MEDS ORDERED: NACL 0.9% IR PRN (23:22)
[2016-12-25] MEDS: DILAUDID IV PRN (00:02)
[2016-12-25] MEDS: NACL 0.9% IR SCH ×4 (02:13→06:18)
[2016-12-25] MEDS: ANCEF/NS 1 GM/50 ML 1 GM/50 ML BAG IV SCH (02:13)
[2016-12-25 06:55] LABS: Basophils % (Auto) 0.5 % (0.0-1.8); Eosinophils % (Auto) 2.1 % (0.0-4.3); Hematocrit 28.5 % (35.5-45.6); Hemoglobin 9.4 gm/dl (11.8-15.2); Mean Corpuscular HGB Conc 33 % (32-34); Mean Corpuscular Hemoglobin 31 pg (28-32); Mean Corpuscular Volume 95 fl (84-94); Platelet Count 181 K/mm3 (140-440); Red Blood Count 3.01 M/mm3 (3.65-5.03); Red Cell Distribution Width 17.1 % (13.2-15.2); White Blood Count 8.1 K/mm3 (4.5-11.0)
[2016-12-25 07:24] LABS: BUN/Creatinine Ratio 9.33; Calcium 8.9 mg/dL (8.4-10.2); Chloride 103.2 mmol/L (98-107); Potassium 4.7 mmol/L (3.6-5.0)
[2016-12-25 08:07] VITALS: BP 125/80
[2016-12-25] MEDS: SODIUM BICARBONATE PO SCH ×2 (08:29→14:03)
--- NOTE | 2016-12-25 09:32 | Fluoroscopy Report ---
Retrograde pyelogram: BPH. Injection of contrast into the distal right ureter demonstrates a focal area of narrowing overlying the lower sacrum. This however is only visualized on the single image of this area. There is segmental visualization of the proximal ureter. There is incomplete filling of the intrarenal collecting system with mild calyceal blunting in the mid pole. No filling defects however are appreciated. Injection of contrast on the left side also demonstrates multiple areas of incomplete ureteral distention with no opacification of the proximal half of the ureter or significant opacification of the intrarenal collecting system. Impression: Limited visualization of both collecting systems. No identified abnormality.
[2016-12-25] MEDS ORDERED: NORVASC PO SCH ×2 (10:00)
[2016-12-25] MEDS: NORCO 5/325 PO PRN (11:41)
--- NOTE | 2016-12-25 13:42 | Progress Note ---
Assessment and Plan BPH pod 2 turp Cj held this am - ambulate - teach self irrigation - disc triggers for er - rx abx, pain meds Subjective Date of service: 12/25/16 Interval history: no sig pain, no sob no cp Objective - Constitutional Vitals: Vital Signs - 12hr 12/25/16 12/25/16 12/25/16 04:29 08:00 09:58 Temperature 97.9 F 98.3 F Pulse Rate 80 75 75 Respiratory 16 18 Rate Blood Pressure 119/75 125/80 125/80 O2 Sat by Pulse 100 Oximetry General appearance: Present: no acute distress - Respiratory Respiratory effort: normal - Gastrointestinal General gastrointestinal: Present: soft Rectal Exam: other ( cath pink) - Psychiatric Psychiatric: appropriate mood/affect - Labs CBC & Chem 7: 12/25/16 06:03 12/25/16 06:03 Labs: Abnormal lab results 12/25/16 12/25/16 Range/Units 06:03 06:03 RBC 3.01 L (3.65-5.03) M/mm3 Hgb 9.4 L (11.8-15.2) gm/dl Hct 28.5 L D (35.5-45.6) % MCV 95 H (84-94) fl RDW 17.1 H (13.2-15.2) % Glucose 111 H (75-100) mg/dL
--- NOTE | 2016-12-25 16:50 | Progress Note ---
Assessment and Plan Assessment and plan: 66-year-old man with past medical history of BPH with prostatic nodule status post TURP and biopsy. Medicine consulted for management of hypertension and acute kidney injury (1) S/P TURP Current Visit: Yes Status: Acute Plan to address problem: post op doing well, continue management per urology (2) HTN (hypertension) Current Visit: Yes Status: Chronic Qualifiers: Hypertension type: essential hypertension Qualified Code(s): I10 - Essential (primary) hypertension Plan to address problem: Blood pressure is well controlled, Cont Amlodipine (3) YANETH (acute kidney injury) Due to vasomotor nephropathy, received IV fluids and has now resolved (4) BPH (benign prostatic hyperplasia) Status post TURP, management per urology (5) DVT prophylaxis Per primary team Patient may be discharged from medicine standpoint History Interval history: He has no complaints, Corona drip was discontinued this morning. He feels well and he feels ready to go home Hospitalist Physical - Physical exam Narrative exam: General: Patient appears well in no distress HEENT: MMM, EOMI cardiac: S1-S2 heard lungs: clear to auscultation, abdomen: soft, nontender, nondistended bowel sounds positive extremities: no edema clubbing or cyanosis Skin: no rash or lesion Neuro: no focal deficit Psych: appropriate behavior and mood, cognition intact - Constitutional Vitals: Temp Pulse Resp BP Pulse Ox 98.3 F 75 18 125/80 100 12/25/16 08:00 12/25/16 09:58 12/25/16 08:00 12/25/16 09:58 12/25/16 08:00 General appearance: Present: no acute distress Results - Labs CBC & Chem 7: 12/25/16 06:03 12/25/16 06:03 Labs: Laboratory Last Values WBC 8.1 K/mm3 (4.5-11.0) 12/25/16 06:03 RBC 3.01 M/mm3 (3.65-5.03) L 12/25/16 06:03 Hgb 9.4 gm/dl (11.8-15.2) L 12/25/16 06:03 Hct 28.5 % (35.5-45.6) L D 12/25/16 06:03 MCV 95 fl (84-94) H 12/25/16 06:03 MCH 31 pg (28-32) 12/25/16 06:03 MCHC 33 % (32-34) 12/25/16 06:03 RDW 17.1 % (13.2-15.2) H 12/25/16 06:03 Plt Count 181 K/mm3 (140-440) 12/25/16 06:03 Lymph % (Auto) 22.6 % (13.4-35.0) 12/25/16 06:03 [place] % (Auto) 6.3 % (0.0-7.3) 12/25/16 06:03 Eos % (Auto) 2.1 % (0.0-4.3) 12/25/16 06:03 Baso % (Auto) 0.5 % (0.0-1.8) 12/25/16 06:03 Lymph # 1.8 K/mm3 (1.2-5.4) 12/25/16 06:03 [place] # 0.5 K/mm3 (0.0-0.8) 12/25/16 06:03 Eos # 0.2 K/mm3 (0.0-0.4) 12/25/16 06:03 Baso # 0.0 K/mm3 (0.0-0.1) 12/25/16 06:03 Seg Neutrophils % 68.5 % (40.0-70.0) 12/25/16 06:03 Seg Neutrophils # 5.5 K/mm3 (1.8-7.7) 12/25/16 06:03 PT 13.9 Sec. (12.2-14.9) 12/23/16 09:35 INR 1.02 (0.87-1.13) 12/23/16 09:35 APTT 26.6 Sec. (24.2-36.6) 12/23/16 09:35 Sodium 138 mmol/L (137-145) 12/25/16 06:03 Potassium 4.7 mmol/L (3.6-5.0) 12/25/16 06:03 Chloride 103.2 mmol/L (98-107) 12/25/16 06:03 Carbon Dioxide 23 mmol/L (22-30) 12/25/16 06:03 Anion Gap 17 mmol/L 12/25/16 06:03 BUN 14 mg/dL (9-20) 12/25/16 06:03 Creatinine 1.5 mg/dL (0.8-1.5) 12/25/16 06:03 Estimated GFR 56 ml/min 12/25/16 06:03 BUN/Creatinine Ratio 9.33 % 12/25/16 06:03 Glucose 111 mg/dL (75-100) H 12/25/16 06:03 Calcium 8.9 mg/dL (8.4-10.2) 12/25/16 06:03 Total Bilirubin 0.30 mg/dL (0.1-1.2) 12/23/16 09:35 AST 17 units/L (5-40) 12/23/16 09:35 ALT 16 units/L (7-56) 12/23/16 09:35 Alkaline Phosphatase 57 units/L (35-129) 12/23/16 09:35 Total Protein 7.6 g/dL (6.3-8.2) 12/23/16 09:35 Albumin 4.0 g/dL (3.9-5) 12/23/16 09:35 Albumin/Globulin Ratio 1.1 % 12/23/16 09:35 Blood Type AB POSITIVE 12/24/16 11:15 Antibody Screen Negative 12/24/16 11:15
== END 2016-12-25 17:45 | disposition home or self-care (01) | DRG 713 ==
LOC: OR 10:59 → 2B-SURG 14:07
PROVIDERS: ADMIT Urology; ATTEND Urology
PROC: 0VB03ZX Excision of Prostate, Percutaneous Approach, Diagnostic (ICD-10-PCS; principal; 2016-12-24)
PROC: 0VB08ZZ Excision of Prostate, Via Natural or Artificial Opening Endoscopic (ICD-10-PCS; principal; 2016-12-24)
PROC: BT141ZZ Fluoroscopy of Kidneys, Ureters and Bladder using Low Osmolar Contrast (ICD-10-PCS; principal; 2016-12-24)
PROC: 0TJB8ZZ Inspection of Bladder, Via Natural or Artificial Opening Endoscopic (ICD-10-PCS; principal; 2016-12-24)
DX: N40.1 Benign prostatic hyperplasia with lower urinary tract symptoms (principal); N17.0 Acute kidney failure with tubular necrosis; R71.0 Precipitous drop in hematocrit; N13.9 Obstructive and reflux uropathy, unspecified; Z88.6 Allergy status to analgesic agent; Z79.899 Other long term (current) drug therapy; R33.8 Other retention of urine; I10 Essential (primary) hypertension; Z82.49 Family history of ischemic heart disease and other diseases of the circulatory system; R39.12 Poor urinary stream
CPT/HCPCS: 36415; 74420; 80048; 80053; 85025; 85610; 85730; 86850; 86900; 86901; 88305; A4217; J0690; J1170; J1580; J2250; J2405; J2704; J3010; J7050; J7120; Q9967

== ENCOUNTER 2016-12-27 13:09 | Emergency (ER) | payer MEDICARE ==
[2016-12-27] MEDS ORDERED: THORAZINE PO ONE (19:18)
--- NOTE | 2016-12-27 19:20 | Emergency Department Report ---
ED General Adult HPI - General Chief complaint: Medical Clearance Stated complaint: HICCUPS Time Seen by Provider: 12/27/16 19:10 Source: patient Mode of arrival: Ambulatory Limitations: No Limitations - History of Present Illness Initial comments: Patient is a 66-year-old male past medical history of BPH who presents with hiccups. Patient states that his symptoms started on they are moderate in severity. He had a surgery for his BPH performed and since then he hasn't been able to stop hiccuping. Patient denies being in any pain he states that the symptoms are constant and nothing makes the symptoms better or worse. Patient states that he is going to follow up with his urologist on Thursday. - Related Data Previous Rx's Medication Instructions Recorded Last Taken Type Sodium Bicarbonate 650 mg PO TID #90 tablet 11/03/16 12/22/16 Rx Tamsulosin [Flomax] 0.4 mg PO QDAY #30 capsule 11/03/16 12/23/16 Rx amLODIPine [Norvasc] 10 mg PO QDAY #30 tablet 11/03/16 12/24/16 Rx chlorproMAZINE [Thorazine] 25 mg PO Q6H PRN #30 tab 12/27/16 Unknown Rx Allergies Allergy/AdvReac Type Severity Reaction Status Date / Time aspirin AdvReac Bleeding Verified 10/31/16 20:34 ED Review of Systems ROS: Stated complaint: HICCUPS Other details as noted in HPI Constitutional: denies: chills, fever Eyes: denies: eye pain, eye discharge, vision change ENT: other (hiccups) Respiratory: denies: cough, shortness of breath, wheezing Cardiovascular: denies: chest pain, palpitations Endocrine: no symptoms reported Gastrointestinal: denies: abdominal pain, nausea, diarrhea Genitourinary: denies: urgency, dysuria Musculoskeletal: denies: back pain, joint swelling, arthralgia Skin: denies: rash, lesions Neurological: denies: headache, weakness, paresthesias Psychiatric: denies: anxiety, depression Hematological/Lymphatic: denies: easy bleeding, easy bruising ED Past Medical Hx - Past Medical History Hx Hypertension: Yes (X 2 MONTHS) Additional medical history: renal insufficiency - Surgical History Past Surgical History?: Yes Additional Surgical History: PROSTATE SURGERY - Social History Smoking Status: Never Smoker Substance Use Type: None - Medications Home Medications: Home Medications Medication Instructions Recorded Confirmed Last Taken Type Sodium Bicarbonate 650 mg PO TID #90 tablet 11/03/16 12/24/16 12/22/16 Rx Tamsulosin [Flomax] 0.4 mg PO QDAY #30 capsule 11/03/16 12/24/16 12/23/16 Rx amLODIPine [Norvasc] 10 mg PO QDAY #30 tablet 11/03/16 12/24/16 12/24/16 Rx chlorproMAZINE [Thorazine] 25 mg PO Q6H PRN #30 tab 12/27/16 Unknown Rx ED Physical Exam - General Limitations: No Limitations General appearance: alert, in no apparent distress - Head Head exam: Present: atraumatic, normocephalic - Eye Eye exam: Present: normal appearance, PERRL, EOMI - ENT ENT exam: Present: mucous membranes moist - Neck Neck exam: Present: normal inspection - Respiratory Respiratory exam: Present: normal lung sounds bilaterally. Absent: respiratory distress - Cardiovascular Cardiovascular Exam: Present: regular rate, normal rhythm. Absent: systolic murmur, diastolic murmur, rubs, gallop - GI/Abdominal GI/Abdominal exam: Present: soft, normal bowel sounds - Rectal Rectal exam: Present: deferred - exam: Present: other (patient has leg Winn bag) - Extremities Exam Extremities exam: Present: normal inspection - Back Exam Back exam: Present: normal inspection - Neurological Exam Neurological exam: Present: alert, oriented X3, CN II-XII intact - Psychiatric Psychiatric exam: Present: normal affect, normal mood - Skin Skin exam: Present: warm, dry, intact, normal color. Absent: rash ED Course Vital Signs 12/27/16 12/27/16 12/27/16 14:09 16:02 16:10 Temperature 99.1 F Pulse Rate 102 H Respiratory 20 Rate Blood Pressure 136/86 131/78 131/78 O2 Sat by Pulse 100 100 Oximetry 12/27/16 12/27/16 12/27/16 16:20 16:30 16:44 Temperature Pulse Rate Respiratory Rate Blood Pressure 126/80 131/78 137/71 O2 Sat by Pulse 99 99 100 Oximetry 12/27/16 12/27/16 12/27/16 16:50 17:00 17:10 Temperature Pulse Rate Respiratory Rate Blood Pressure 151/87 143/87 143/87 O2 Sat by Pulse 98 100 99 Oximetry 12/27/16 12/27/16 12/27/16 17:20 17:30 18:02 Temperature Pulse Rate Respiratory Rate Blood Pressure 133/85 133/77 133/77 O2 Sat by Pulse 100 100 99 Oximetry 12/27/16 12/27/16 12/27/16 18:10 18:20 18:30 Temperature Pulse Rate Respiratory Rate Blood Pressure 133/77 137/99 131/80 O2 Sat by Pulse 99 99 100 Oximetry 12/27/16 12/27/16 12/27/16 18:40 18:50 19:00 Temperature Pulse Rate Respiratory Rate Blood Pressure 131/80 138/80 138/80 O2 Sat by Pulse 100 100 99 Oximetry 12/27/16 12/27/16 19:10 20:13 Temperature Pulse Rate 81 Respiratory Rate Blood Pressure 138/80 O2 Sat by Pulse 99 100 Oximetry - Reevaluation(s) Reevaluation #1: 12/27/16 21:02 Received Thorazine discussed with patient that he'll need to follow up with his surgeon. Additional verbal discharge instructions were given ED Medical Decision Making - Medical Decision Making Chief medical diagnosis: Hiccups secondary to phrenic nerve irritation Differential medical diagnosis: Diaphramatic hernia, post operative complication Patient's history is most consistent of hiccups mean secondary cause by a surgical complication. I'll give patient oral Thorazine and a prescription for Thorazine for him to go home with. Critical care attestation.: If time is entered above; I have spent that time in minutes in the direct care of this critically ill patient, excluding procedure time. ED Disposition Clinical Impression: Intractable hiccups Disposition: - TO HOME OR SELFCARE Is pt being admited?: No Does the pt Need Aspirin: No Condition: Stable Instructions: Hiccups (ED) Prescriptions: chlorproMAZINE [Thorazine] 25 mg PO Q6H PRN #30 tab PRN Reason: Hiccups Referrals: PRIMARY CARE, [Primary Care Provider] - 3-5 Days
[2016-12-27 19:21] VITALS: BP 138/80
== END 2016-12-27 21:12 | disposition home or self-care (01) ==
LOC: ED 13:09
DX: R06.6 Hiccough (principal); I10 Essential (primary) hypertension; Z88.6 Allergy status to analgesic agent
CPT/HCPCS: 99282; Q0161

== ENCOUNTER 2020-05-17 18:36 | Emergency (ER) | payer MEDICARE ==
--- NOTE | 2020-05-17 18:45 | Event Note ---
ED Screening Note ED Screening Note: 70 yo with dec po appetite and hiccups found with low oxygen sat in triage endorses sob with hiccups no covid known exposure see PMH This initial assessment/diagnostic orders/clinical plan/treatment(s) is/are subject to change based on patients health status, clinical progression and re- assessment by fellow clinical providers in the ED. Further treatment and workup at subsequent clinical providers discretion. Patient/guardian urged not to elope from the ED as their condition may be serious if not clinically assessed and managed. Initial orders include: ro acs/covid
[2020-05-17 18:51] VITALS: BP 117/66
[2020-05-17 19:08] LABS: Hematocrit 38.7 % (35.5-45.6); Hemoglobin 12.7 gm/dl (11.8-15.2); Mean Corpuscular HGB Conc 33 % (32-34); Mean Corpuscular Volume 80 fl (84-94); Platelet Count 142 K/mm3 (140-440); Red Blood Count 4.81 M/mm3 (3.65-5.03); Red Cell Distribution Width 17.5 % (13.2-15.2)
--- NOTE | 2020-05-17 19:22 | XRay Report ---
CHEST PA AND LATERAL VIEWS INDICATION: cp. COMPARISON: None FINDINGS: Support devices: None Heart: Normal Lungs/Pleura: No acute pulmonary or pleural findings. IMPRESSION: 1. No active disease. Signer Name: Sukhi Ortiz MD Signed: 05/17/2020 7:18 PM Workstation Name: [id number]
[2020-05-17 19:35] LABS: Alanine Aminotransferase 14 units/L (7-56); Albumin 3.7 g/dL (3.9-5); BUN/Creatinine Ratio 14; Blood Urea Nitrogen 19 mg/dL (9-20); Calcium 8.3 mg/dL (8.4-10.2); Hemolysis Index 66
== END 2020-05-17 18:50 | disposition left against medical advice (07) ==
LOC: ED 18:36
DX: R06.6 Hiccough (principal); R06.02 Shortness of breath; Z53.21 Procedure and treatment not carried out due to patient leaving prior to being seen by health care provider
CPT/HCPCS: 36415; 71046; 80053; 82140; 84484; 85027